=== PATIENT | male | born 1965 | race Caucasian/White ===

== ENCOUNTER 2020-03-03 10:51 | Inpatient (IN) | payer OTHER ==
--- NOTE | 2020-03-03 11:38 | PDOC ---
History of Present Illness - General Chief Complaint: Pain, Acute Stated Complaint: Hematuria Time Seen by Provider: 03/03/20 11:37 History Source: Patient Exam Limitations: No Limitations - History of Present Illness Initial Comments: 03/03/20 12:39 HPI: This is a 54 y/o male patient with a PMH of spinal cord injury and resulting urinary incontinence and nephrolithiasis presenting to the ED due to intermittent sharp right lower back pain and gross hematuria for the past 5-6 months. The back pain is 10/10, sharp, non-radiating, and has increased in intensity in the past day. Previously he has had this pain, however never this bad. He can't recall if it is similar to his last kidney stone. The pain is not always accompanied by the hematuria, and the hematuria isn't always accompanied by the pain. Advil did not significantly improve the pain. The pain is worse with movement. The hematuria began 6 months ago, and has been intermittent. He did not see anyone for it because he was concerned about COVID. He does not take any blood thinners. The hematuria is accompanied by dysuria, urinary hesitancy, and incomplete emptying. Patient denies fever/chills, N/V, chest pain, SOB, diarrhea. Admits to weight loss and constipation. ROS: GENERAL/CONSTITUTIONAL: No fever/chills. No weakness. Yes weight-loss. HEAD, EYES, EARS, NOSE AND THROAT: No change in vision. No ear pain or discharge. No sore throat. CARDIOVASCULAR: No chest pain or shortness of breath. RESPIRATORY: No cough, wheezing, or hemoptysis. GASTROINTESTINAL: No nausea, vomiting, diarrhea. Yes constipation. GENITOURINARY: Yes dysuria and frequency. Yes gross hematuria with clots. Yes chronic incontinence. MUSCULOSKELETAL: No joint or muscle swelling or pain. Yes r. lower back pain. SKIN: No rash NEUROLOGIC: No headache, or change in strength/sensation. HEMATOLOGIC/LYMPHATIC: No anemia, easy bleeding, or history of blood clots. ALLERGIC/IMMUNOLOGIC: No hives or skin allergy. PMH: Spinal cord injury PSx: Left elbow Social Hx: Denied tobacco and etoh. Marijuana use Meds: Denied Allergies: KNDA PE: GENERAL: Awake, alert, and fully oriented. Patient in visible distress due to pain, but able to converse normally. HEAD: No signs of trauma EYES: PERRLA, EOMI, sclera anicteric, conjunctiva clear NECK: Normal ROM, supple, no lymphadenopathy, JVD, or masses LUNGS: Breath sounds equal, clear to auscultation bilaterally. No wheezes, and no crackles HEART: Regular rate and rhythm, normal S1 and S2, no murmurs, rubs or gallops ABDOMEN: Soft, tender in RLQ and suprapubic, normoactive bowel sounds. No CVA tenderness. No guarding, no rebound. No masses EXTREMITIES: Normal range of motion, no edema. NEUROLOGICAL: Cranial nerves II through XII grossly intact. Normal speech, normal gait SKIN: Warm, Dry, normal turgor, no rashes or lesions noted. MDM: 03/03/20 12:51 This is a 54 y/o male patient with a PMH of spinal cord injury and resulting urinary incontinence and nephrolithiasis presenting to the ED due to intermittent sharp right lower back pain and gross hematuria for the past 5-6 months. sean vs stone vs bladder mass vs renal mass vs UTI vs pyelo. Likely multiple etiologies. Doubt appendicitis. - CBC - CMP - Coags - UA - Culture - EKG - POCUS bladder and kidneys - CT abdomen and Pelvis 03/03/20 13:41 - SEAN: Creat 5.1, BUN 68.2 - Hb 7.5 likely chronic. - K 5.2, bicarb low no EKG changes - Leukocytosis 11.4, no bands - UA with 3+ protein and blood. No UTI. 03/03/20 15:09 CT ABD/PELVIS: IMPRESSION: 1. Severe right-sided hydronephrosis and hydroureter with marked thinning of the right renal cortex consistent with a long-standing obstruction. There is an 11 mm calculus within the proximal right ureter which does not appear to be obstructing. There is also hyperdense fluid within the right ureter consistent with blood. 2. Less severe left-sided hydronephrosis and hydroureter with less extensive thinning of the left renal cortex consistent with a less long-standing obstruction. No left-sided calculi or blood identified. 3. Moderate distention of the urinary bladder which does contain hyperdense material consistent with blood. 4. Enlarged left retroperitoneal lymph nodes. 5. No additional evidence of acute pathology within the abdomen or pelvis. Please see above discussion. - POCUS with 550 ml retained fluid in bladder. Will insert paniagua. 03/03/20 15:10 - Pt will need to be admitted for SEAN, bilateral nephrostomy tubes 03/03/20 15:11 - Microblogged symphony - Spoke with Dr. Amaral who wanted prophylactic Ceftriaxone 03/03/20 15:40 - Pt admitted Past History - Medical History Allergies/Adverse Reactions: Allergies Allergy/AdvReac Type Severity Reaction Status Date / Time No Known Allergies Allergy Verified 03/03/20 10:54 Home Medications: Ambulatory Orders Advil - 200 mg 03/04/20 - Psycho-Social/Smoking History Smoking History: Never smoked Have you smoked in the past 12 months: No Information on smoking cessation initiated: Yes - Substance Abuse Hx (Audit-C & DAST Scrn) How often the patient has a drink containing alcohol: Never Score: In Men: 4 or > Positive; In Women: 3 or > Positive: 0 Screen Result (Pos requires Nsg. Audit-10AR): Negative In the last yr the pt used illegal drug/Rx for NonMed reason: Yes Score: Yes response is considered Positive: 1 Screen Result (Positive result requires Nsg. DAST-10): Positive *Physical Exam - Vital Signs Last Vital Signs Temp Pulse Resp BP Pulse Ox 100 H 168/109 H 99 03/03/20 10:52 03/03/20 10:52 03/03/20 10:52 Heart Score/ECG Review - ECG Intrepretation Comment:: 03/03/20 13:[address] elevations or T-wave inversions. Vent rate 88bpm, ED Treatment Course - LABORATORY CBC & Chemistry Diagram: 03/04/20 06:50 03/04/20 06:50 Discharge - Discharge Information Problems reviewed: Yes Clinical Impression/Diagnosis: SEAN (acute kidney injury), Hyperkalemia, Urinary obstruction, Nephrolithiasis Condition: Guarded - Admission Yes - Follow up/Referral - Patient Discharge Instructions - Post Discharge Activity
[2020-03-03] MEDS ORDERED: SODIUM CHLORIDE 0.9% 500 ML INFUS.BAG IV ONE (11:57)
[2020-03-03] MEDS ORDERED: morphine CARPU-JECT 2 MG/1 ML DISP.SYRIN IVPUSH ONE ×2 (12:10→12:16)
[2020-03-03] MEDS ORDERED: ACETAMINOPHEN 1000 MG/100 ML VIAL (NON FORMULARY) IVPB ONE ×2 (12:10→21:44)
[2020-03-03] MEDS ORDERED: ACETAMINOPHEN INJECTION 100 ML IVPB ONE (12:29)
[2020-03-03] MEDS ORDERED: morphine SULFATE 4 MG/ML VIAL ONE ×2 (12:29→15:05)
[2020-03-03 13:10] LABS: BASO % 0.1 % (0-2.0); HEMOGLOBIN 7.5 GM/dL (11.7-16.9); LYMPH % 6.1 % (8-40); MCH 28.9 pg (25.7-33.7); MCHC 32.5 g/dl (32.0-35.9); MEAN PLT VOLUME 8.3 fl (7.5-11.1); MONO % 2.7 % (3.8-10.2); NEUT % 91.1 % (42.8-82.8); PLATELET COUNT 247 K/MM3 (134-434); RBC 2.58 M/mm3 (4.00-5.60); RDW 13.7 % (11.9-15.9); WHITE BLOOD COUNT 11.4 K/mm3 (4.0-10.0)
--- NOTE | 2020-03-03 13:12 | PDOC ---
Documentation entered by Lin Matias SCRIBE, acting as scribe for Dee Payan MD. Dee Payan MD: This documentation has been prepared by the Florencio rodriguez Ana, SCRIBE, under my direction and personally reviewed by me in its entirety. I confirm that the documentation accurately reflects all work, treatment, procedures, and medical decision making performed by me. Attending Attestation - Resident Resident Name: Blaire Dwyer - ED Attending Attestation I have performed the following: I have examined & evaluated the patient, The case was reviewed & discussed with the resident, I agree w/resident's findings & plan, Exceptions are as noted - HPI HPI: 03/03/20 11:38 Patient is a 54 year old male with a significant past medical history of a spinal cord injury, nephrolithiasis, and urinary incontinence, who presents with a 5 month history of dysuria, intermittent hematuria, intermitent abdominal pain, and lower back pain. Also complains of intermittent urinary hesitancy. Today, began to have the acute onset of sharp, severe R lower back pain. Patient described the pain as being sharp and non-radiating with a pain level of 10/10 and increased intensity earlier today. Patient stated the pain is worse with movement and that he attempted to self-medicate with Advil but experienced no relief. Patient endorses: constipation and weight loss Patent denies: fever, chills, nausea, SOB, vomiting, chest pain, diarrhea Allergies: NKDA - Physicial Exam PE: 03/03/20 13:09 Agree with resident exam. Patient is alert and oriented and in no acute distress. Abdomen is tender in the RLQ without guarding or rebound. No CVA tenderness. - Medical Decision Making 03/03/20 13:10 Pt presents to the ED complaining of 5 months of dysuria, intermitent hematuria and flank pain. Differential includes renal stone, UTI, urinary obstruction, less likely appendicitis or other intrabdominal complaints. Will check labs and CT, give pain control and reassess. Discharge - Discharge Information Problems reviewed: Yes Clinical Impression/Diagnosis: SEAN (acute kidney injury), Hyperkalemia, Urinary obstruction, Nephrolithiasis Condition: Guarded - Follow up/Referral - Patient Discharge Instructions - Post Discharge Activity
[2020-03-03 13:17] LABS: INR 1.03 (0.83-1.09); PROTHROMBIN TIME (PATIENT) 12.2 SEC (9.7-13.0)
[2020-03-03 13:19] LABS: EPI CELLS 1 /uL (0-25.1); HYALINE CASTS 0 /uL (0-3.1); PH,URINE 6.5 (5.0-8.0); URINE APPEARANCE CLOUDY; URINE BACTERIA 16 /uL (0-1359); URINE BILIRUBIN NEGATIVE (NEGATIVE); URINE COLOR RED; URINE GLUCOSE (UA) NEGATIVE (NEGATIVE); URINE KETONE NEGATIVE (NEGATIVE); URINE LEUK ESTERASE TRACE (NEGATIVE); URINE NITRITE NEGATIVE (NEGATIVE); URINE PROTEIN 3+ (NEGATIVE); URINE RBC 11 /uL (0-23.9); URINE UROBILINOGEN 0.2 mg/dL (0.2-1.0); URINE WBC 2 /uL (0-25.8)
[2020-03-03 13:20] LABS: ACTIVATED PTT 27.7 SECONDS (25.2-36.5)
[2020-03-03 13:35] LABS: ANISOCYTOSIS 0; MACROCYTOSIS 0; PLATELET ESTIMATE NORMAL
[2020-03-03 13:36] LABS: BILIRUBIN,TOTAL 0.4 mg/dL (0.2-1); BLOOD UREA NITROGEN 68.2 mg/dL (7-18); CALCIUM 8.9 mg/dL (8.5-10.1); CREATININE 5.1 mg/dL (0.55-1.3); POTASSIUM 5.2 mmol/L (3.5-5.1); TOT PROT 6.9 g/dl (6.4-8.2)
[2020-03-03] MEDS ORDERED: morphine CARPU-JECT 4 MG/1 ML DISP.SYRIN IVPUSH ONE (14:51)
--- NOTE | 2020-03-03 15:35 | PN ---
Teaching Attending Note Name of Resident: Mauro Castelan MD ATTENDING PHYSICIAN STATEMENT I saw and evaluated the patient. I reviewed the resident's note and discussed the case with the resident. I agree with the resident's findings and plan as documented. SUBJECTIVE: 54 year old male with a significant past medical history of a spinal cord injury, nephrolithiasis, urinary incontinence and retention, who presents with complaints of painful urination complicated by occasional hematuria. He admits to low back and abdominal pains. He denied fever nor chills. At the ED patient was found to be tachycardic, hypertensive, with abnormal CT scan of the abdomen showing bilateral hydronephrosis and lab work consistent with renal failure. OBJECTIVE: Gen CT scan of the abdomen shows Severe right-sided hydronephrosis and hydroureter with marked thinning of the right renal cortex consistent with a long-standing obstruction. There is an 11 mm calculus within the proximal right ureter which does not appear to be obstructing. There is also hyperdense fluid within the right ureter consistent with blood. Less severe left-sided hydronephrosis and hydroureter with less extensive thinning of the left renal cortex consistent with a less long-standing obstruction. No left-sided calculi or blood identified. Moderate distention of the urinary bladder which does contain hyperdense material consistent with blood. Enlarged left retroperitoneal lymph nodes. ASSESSMENT AND PLAN:
[2020-03-03] MEDS ORDERED: CEFTRIAXONE 1 GM/50 ML BAG ONE (15:38)
--- NOTE | 2020-03-03 18:01 | CONSULT ---
Consult Consult Specialty:: Nephrology Reason for Consultation:: SEAN - History of Present Illness Chief Complaint: hematuria and abd pain History of Present Illness: Pt is a 54 year old male with pmhx of spinal cord injury, nephrolithiasis, and urinary incontinence who presents to the ER with dysuria and hematuria for the last 5 months. He also complains of back pain. He says that the pain is worse on the right flank. He denies fevers or chills. He was taking Advil for the pain. He was found to have severe obstruction and found to be in acute renal failure. He denies history of CKD. He does have history of kidney stones. He was afraid to come to the hospital for the last 5 months as he was afraid of covid. - History Source History Provided By: Patient, Medical Record - Past Medical History Renal/: Yes: Renal Calculi Musculoskeletal: Yes: Chronic low back pain - Smoking History Smoking history: Never smoked Have you smoked in the past 12 months: No Home Medications - Allergies Allergies/Adverse Reactions: Allergies Allergy/AdvReac Type Severity Reaction Status Date / Time No Known Allergies Allergy Verified 03/03/20 10:54 Family Medical History Family History: Denies Review of Systems - Review of Systems Constitutional: reports: Loss of Appetite, Weakness. denies: Chills, Fever Eyes: reports: No Symptoms HENT: reports: No Symptoms Neck: reports: No Symptoms Cardiovascular: reports: No Symptoms Respiratory: reports: No Symptoms Gastrointestinal: reports: No Symptoms Genitourinary: reports: Dysuria, Hematuria Musculoskeletal: reports: No Symptoms Integumentary: reports: No Symptoms Neurological: reports: No Symptoms Endocrine: reports: No Symptoms Hematology/Lymphatic: reports: No Symptoms Psychiatric: reports: No Symptoms Physical Exam Vital Signs: Vital Signs Temperature Pulse Rate 77 03/03/20 16:24 Respiratory Rate 17 03/03/20 16:24 Blood Pressure 153/93 03/03/20 16:24 O2 Sat by Pulse Oximetry (%) 97 03/03/20 16:24 Constitutional: Yes: Calm Eyes: Yes: Conjunctiva Clear Neck: Yes: Supple Cardiovascular: Yes: S1, S2 Respiratory: Yes: CTA Bilaterally Gastrointestinal: Yes: Soft, Abdomen, Obese Renal/: Yes: Johnson Present, Hematuria Musculoskeletal: Yes: WNL Edema: Yes Edema: LLE: Trace, RLE: Trace Integumentary: Yes: WNL Neurological: Yes: Oriented Psychiatric: Yes: Oriented Labs: CBC, BMP 03/03/20 12:00 03/03/20 12:10 Laboratory Tests 03/03/20 03/03/20 03/03/20 12:00 12:00 12:10 WBC 11.4 H Hgb 7.5 L Plt Count 247 Sodium 140 Potassium 5.2 H Chloride 112 H Carbon Dioxide 17 L Anion Gap 12 BUN 68.2 H Creatinine 5.1 H Urine Protein 3+ H Urine Blood 3+ H Imaging - Results Cat Scan: Report Reviewed Problem List - Problems (1) SEAN (acute kidney injury) Code(s): N17.9 - ACUTE KIDNEY FAILURE, UNSPECIFIED (2) Hyperkalemia Code(s): E87.5 - HYPERKALEMIA (3) Urinary obstruction Code(s): N13.9 - OBSTRUCTIVE AND REFLUX UROPATHY, UNSPECIFIED (4) Nephrolithiasis Code(s): N20.0 - CALCULUS OF KIDNEY Assessment/Plan Impression 1. SEAN 2. obstructive uropathy with severe right side hydro 3. spinal chord injury 4. nephrolithiasis 5. hematuria - gross 6. dysuria 7. nsaid use 8. anemia 9. hyperkalemia 10. 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
[2020-03-03 18:14] LABS: EOS % 0.1 % (0-4.5); HEMATOCRIT 20.2 % (35.4-49); LYMPH % 10.6 % (8-40); MCH 29.9 pg (25.7-33.7); MCHC 33.3 g/dl (32.0-35.9); MEAN CELL VOLUME 89.7 fl (80-96); MONO % 6.1 % (3.8-10.2); NEUT % 82.2 % (42.8-82.8); PLATELET COUNT 189 K/MM3 (134-434); RBC 2.26 M/mm3 (4.00-5.60); RDW 13.7 % (11.9-15.9); WHITE BLOOD COUNT 9.2 K/mm3 (4.0-10.0)
[2020-03-03 18:20] LABS: HEMOGLOBIN 6.7 GM/dL (11.7-16.9)
--- NOTE | 2020-03-03 19:18 | PN ---
Teaching Attending Note Name of Resident: Stanford Sandoval ATTENDING PHYSICIAN STATEMENT I saw and evaluated the patient. I reviewed the resident's note and discussed the case with the resident. I agree with the resident's findings and plan as documented. SUBJECTIVE: Patient is a 54 year old man with a PMH of Spinal cord injury, Nephrolithiasis, Tomas in the left elbow and Urinary incontinence, who presents with a 5 month history of dysuria, intermittent hematuria, intermitent abdominal pain and lower back pain. Also complains of intermittent urinary hesitancy. Today, began to have the acute onset of sharp, severe right lower back pain. Patient described the pain as being sharp and non-radiating with a pain level of 10/10 and increased intensity earlier today. Patient stated the pain is worse with movement and that he attempted to self-medicate with Advil but experienced no relief. There is associated constipation and weight loss. Ambulates well without assistance. Patent denies fever, chills, nausea, SOB, vomiting, chest pain, diarrhea, melena or hematochezia. Denies alcohol, tobacco or illicit drug use. No sick contacts or recent travels. Family history is unremarkable. OBJECTIVE: Alert Vital Signs Period Temp Pulse Resp BP Sys/Masters Pulse Ox Last 24 Hr 98.3 F 77-100 17-18 141-194/68-109 97-99 HEENT: No Jaundice, eye redness or discharge, PERRLA, EOMI. Normocephalic, atraumatic. External ears are normal and hearing is grossly intact. No nasal discharge. Neck: Supple, nontender. No palpable adenopathy or thyromegaly. No JVD Chest: Good effort. Clear to auscultation and percussion. Heart: Regular. No S3, rub or murmur Abdomen: Not distended, soft, suprapubic tenderness; nephrostomy tubes draining serosanguineous fluids and no HSM. No rebound or guarding. Normal bowel sounds. Ext: Peripheral pulses intact. No leg edema. Skin: Warm and dry. No petechiae, rash or ecchymosis. Neuro: Alert. Oriented x3. CN 2-12 grossly intact. Sensation grossly intact in all four extremities and DTR are symmetric. Psych: Appropriate mood and affect. Good insight. Abnormal Lab Results 03/03/20 03/03/20 03/03/20 12:00 12:00 12:10 WBC 11.4 H RBC 2.58 L Hgb 7.5 L Hct 23.0 L Absolute Neuts (auto) 10.4 H Neutrophils % 91.1 H Neutrophils % (Manual) 92.0 H Lymphocytes % 6.1 L Lymphocytes % (Manual) 7.0 L Monocytes % 2.7 L Monocytes % (Manual) 1 L Potassium 5.2 H Chloride 112 H Carbon Dioxide 17 L BUN 68.2 H Creatinine 5.1 H AST 9 L Urine Protein 3+ H Urine Blood 3+ H 03/03/20 17:30 WBC RBC 2.26 L Hgb 6.7 L* Hct 20.2 L Absolute Neuts (auto) Neutrophils % Neutrophils % (Manual) Lymphocytes % Lymphocytes % (Manual) Monocytes % Monocytes % (Manual) Potassium Chloride Carbon Dioxide BUN Creatinine AST Urine Protein Urine Blood Current Medications Generic Name Dose Route Start Last Admin Trade Name Freq PRN Reason Stop Dose Admin Docusate Sodium 100 mg 03/03/20 21:30 03/03/20 21:57 Colace - PO 100 mg DAILY NELSON Administration Sodium Chloride 1,000 mls @ 75 mls/hr 03/03/20 21:45 03/03/20 23:38 Normal Saline - IV 75 mls/hr ASDIR NELSON Administration Senna 2 tab 03/03/20 22:00 03/03/20 21:57 Senna - PO 2 tab HS NELSON Administration ASSESSMENT AND PLAN: 1. CKD with superimposed SEAN CT scan of abdomen/pelvis without contrast showed bilateral hydronephrosis (R>L), enlarged retroperitoneal lymphnodes and distended uriary bladder with bloody fluid. Likely had long standing obstruction or some other disorder that caused CKD and now has superimposed SEAN possibly due to effects of NSAID and dehydration. Nephrostomy tubes has been placed by Interventional radiology. Mild hyperkalemia should improve with increased urine flow. Will get CXR, PTH level, phosphate, continue to hydrate gently, monitor urine output and consult Urology. Avoid nephrotoxic agents such as NSAIDS, aminoglycosides, contrast dyes and certain Alternative medicine products. Will strive to get his medical records form his PCP. Viral testing for COVID-19 ordered and patient placed on airborne, droplet and contact isolation. ER staff prescribed Tylenol, IV Rocephin, Morphine and IV NS for the patient. EKG shows NSR at 88/minute and QTc [address]-T wave changes. Initial troponin is negative. Will continue comprehensive care for all of patients comorbid conditions. 2. Anemia - Likely partly due to CKD and blood loss. Will do basic anemia work up including serial stool guaiacs and iron studies. Being transfused PRBC, but will benefit from IV Venofer before discharge. 3. Obesity Counseled on the risks associated with obesity. Will provide patient all the necessary assistance, counseling and positive reinforcement to facilitate weight loss. Consult senior manager quality assurance. 4. Hypertension Will restart suitable outpatient antihypertensive drugs when clinically appropriate. Subsequently, will revise regimen to ensure [id number] excellent BP control. Patient counseled on the injurious effects of uncontrolled hypertension. Nonpharmacologic measures to control hypertension like weight loss, salt restriction and exercise stressed. Importance of adherence to treatment regimen and attainment of normotension emphasized. 5. DVT prophylaxis - SCD. 6. Advance directives - Full code
[2020-03-03] MEDS ORDERED: SODIUM CHLORIDE 1,000 ML IV SCH (21:45)
--- NOTE | 2020-03-03 21:52 | HP ---
CHIEF COMPLAINT: R low back pain, hematuria, dysuria PCP: none HISTORY OF PRESENT ILLNESS: 6 months ago, pt started developing intermittent hematuria & dysuria. The pt did not see a physician to address these symptoms due to COVID. Then the Pt started developing intermittent, sharp, non-radiating 10/10 lower R back pain. Pt took a month of Advil liquid gel 6-8 pills 200 mg/day to manage his symptoms. It has increased in intensity in the past 2 days, prompting the patient to come into the ED. Denied fevers, chills, nausea, vomiting. Pt had previous kidney stone >10 years ago, which was managed with lithotripsy. He was never told the content of the stone. ER course was notable for: (1) BP 168/109 (2) BUN/Cr 68.2/5.1 GR: 12 (3)K+ 5.2 (4) WBC 11.4 (91.1% neutrophils) (5) H/H: 7.5/23>6.7/20.2 (6) UA: 3+ protein, 3+ blood, 11 RBCs (7)1 gm ceftriaxone, morphine, NS given in ED (8) CTAP: Severe R hydronephrosis, hydroureter. Marked thinning of R renal cortex consistent with long standing obstruction. 11 mm calculus within proximal R ureter less severe L hydronephrosis & hydroureter with thinning of L renal cortex (9) urology was consulted. 10 divehi pigtail nephrostomy tubes were inserted Recent Travel: denies PAST MEDICAL HISTORY: spinal cord injury resulting in urinary incontinence PAST SURGICAL HISTORY: metal inserted in L elbow 2/2 trauma Social History: Smoking:denies Alcohol: denies Drugs: marijuana living at home with mom & grandma no recent travel Allergies No Known Allergies Allergy (Verified 03/03/20 10:54) HOME MEDICATIONS: REVIEW OF SYSTEMS CONSTITUTIONAL: Absent: fever, chills, diaphoresis, generalized weakness, malaise, loss of appetite, HEENT: Absent: rhinorrhea, nasal congestion, throat pain, throat swelling, difficulty swallowing, mouth swelling, ear pain, eye pain, visual changes CARDIOVASCULAR: Absent: chest pain, syncope, palpitations, irregular heart rate, lightheadedness, peripheral edema RESPIRATORY: Absent: cough, shortness of breath, dyspnea with exertion, orthopnea, wheezing, stridor, hemoptysis GASTROINTESTINAL: constipation Absent: abdominal pain, abdominal distension, nausea, vomiting, diarrhea, melena, hematochezia GENITOURINARY: dysuria, frequency, hematuria, flank pain Absent: urgency, hesitancy, genital pain MUSCULOSKELETAL: Absent: myalgia, arthralgia, joint swelling, back pain, neck pain SKIN: Absent: rash, itching, pallor HEMATOLOGIC/IMMUNOLOGIC: Absent: easy bleeding, easy bruising, lymphadenopathy, frequent infections ENDOCRINE: Absent: unexplained weight gain, unexplained weight loss, heat intolerance, cold intolerance NEUROLOGIC: Absent: headache, focal weakness or paresthesias, dizziness, unsteady gait, seizure, mental status changes, bladder or bowel incontinence PSYCHIATRIC: Absent: anxiety, depression, suicidal or homicidal ideation, hallucinations. PHYSICAL EXAMINATION Vital Signs - 24 hr 03/03/20 03/03/20 03/03/20 10:52 16:10 16:16 Temperature Pulse Rate 100 H 89 Pulse Rate [ 81 Left Lower Arm] Pulse Rate [ Right] Respiratory 17 Rate Respiratory 17 Rate [Left Lower Arm] Blood Pressure 168/109 H 194/109 H Blood Pressure 194/109 H [Left Lower Arm ] Blood Pressure [Right Arm] O2 Sat by Pulse 99 98 Oximetry (%) O2 Sat by Pulse 98 Oximetry (%) [ Left Lower Arm] 03/03/20 03/03/20 03/03/20 16:24 17:44 17:59 Temperature 98.3 F Pulse Rate 77 Pulse Rate [ Left Lower Arm] Pulse Rate [ 78 Right] Respiratory 17 18 Rate Respiratory Rate [Left Lower Arm] Blood Pressure 153/93 Blood Pressure [Left Lower Arm ] Blood Pressure 141/68 [Right Arm] O2 Sat by Pulse 97 98 99 Oximetry (%) O2 Sat by Pulse Oximetry (%) [ Left Lower Arm] GENERAL: Awake, alert, and fully oriented, in no acute distress. HEAD: Normal with no signs of trauma. EYES: Pupils equal, round and reactive to light, extraocular movements intact, sclera anicteric, conjunctiva clear. No lid lag. EARS, NOSE, THROAT: Ears normal, nares patent, oropharynx clear without exudates. Moist mucous membranes. NECK: Normal range of motion, supple without lymphadenopathy, JVD, or masses. LUNGS: Breath sounds equal, clear to auscultation bilaterally. No wheezes, and no crackles. No accessory muscle use. HEART: Regular rate and rhythm, normal S1 and S2 without murmur, rub or gallop. ABDOMEN: Soft, obese abdomen normoactive bowel sounds, no guarding, no rebound, no masses. mild suprapubic tenderness MUSCULOSKELETAL: Normal range of motion at all joints. No bony deformities or tenderness. Positive CVA tenderness, R side UPPER EXTREMITIES: 2+ pulses, warm, well-perfused. No cyanosis. No clubbing. No peripheral edema. 5/5 strength. sensation intact b/l. L elbow scar from trauma/surgical repair LOWER EXTREMITIES: 2+ pulses, warm, well-perfused. No calf tenderness. No peripheral edema. 5/5 strength. sensation intact b/l. NEUROLOGICAL: Cranial nerves II-XII intact. Normal speech. Normal gait. PSYCHIATRIC: Cooperative. Good eye contact. Appropriate mood and affect. SKIN: Warm, dry, normal turgor, no rashes or lesions noted, normal capillary refill. Laboratory Results - last 24 hr 03/03/20 03/03/20 03/03/20 12:00 12:00 12:00 WBC 11.4 H RBC 2.58 L Hgb 7.5 L Hct 23.0 L MCV 89.0 MCH 28.9 MCHC 32.5 RDW 13.7 Plt Count 247 MPV 8.3 Absolute Neuts (auto) 10.4 H Neutrophils % 91.1 H Neutrophils % (Manual) 92.0 H Band Neutrophils % 0.0 Lymphocytes % 6.1 L Lymphocytes % (Manual) 7.0 L Monocytes % 2.7 L Monocytes % (Manual) 1 L Eosinophils % 0.0 Eosinophils % (Manual) 0.0 Basophils % 0.1 Basophils % (Manual) 0.0 Myelocytes % (Man) 0 Promyelocytes % (Man) 0 Blast Cells % (Manual) 0 Nucleated RBC % 0 Metamyelocytes 0 Hypochromia 0 Platelet Estimate Normal Polychromasia 0 Poikilocytosis 0 Anisocytosis 0 Microcytosis 0 Macrocytosis 0 PT with INR 12.20 INR 1.03 PTT (Actin FS) 27.7 Sodium Potassium Chloride Carbon Dioxide Anion Gap BUN Creatinine Est GFR (CKD-EPI)AfAm Est GFR (CKD-EPI)NonAf Random Glucose Calcium Total Bilirubin AST ALT Alkaline Phosphatase Total Protein Albumin Lipase Urine Color Red Urine Appearance Cloudy Urine pH 6.5 Ur Specific [place] 1.013 Urine Protein 3+ H Urine Glucose (UA) Negative Urine Ketones Negative Urine Blood 3+ H Urine Nitrite Negative Urine Bilirubin Negative Urine Urobilinogen 0.2 Ur Leukocyte Esterase Trace Urine WBC (Auto) 2 Urine RBC (Auto) 11 Urine Casts (Auto) 0 U Epithel Cells (Auto) 1 Urine Bacteria (Auto) 16 Blood Type Antibody Screen Crossmatch 03/03/20 03/03/20 03/03/20 12:10 17:30 18:53 WBC 9.2 RBC 2.26 L Hgb 6.7 L* Hct 20.2 L MCV 89.7 MCH 29.9 MCHC 33.3 RDW 13.7 Plt Count 189 D MPV 9.0 Absolute Neuts (auto) 7.6 Neutrophils % 82.2 Neutrophils % (Manual) Band Neutrophils % Lymphocytes % 10.6 D Lymphocytes % (Manual) Monocytes % 6.1 D Monocytes % (Manual) Eosinophils % 0.1 D Eosinophils % (Manual) Basophils % 1.0 D Basophils % (Manual) Myelocytes % (Man) Promyelocytes % (Man) Blast Cells % (Manual) Nucleated RBC % 0 Metamyelocytes Hypochromia Platelet Estimate Polychromasia Poikilocytosis Anisocytosis Microcytosis Macrocytosis PT with INR INR PTT (Actin FS) Sodium 140 Potassium 5.2 H Chloride 112 H Carbon Dioxide 17 L Anion Gap 12 BUN 68.2 H Creatinine 5.1 H Est GFR (CKD-EPI)AfAm 13.93 Est GFR (CKD-EPI)NonAf 12.02 Random Glucose 106 Calcium 8.9 Total Bilirubin 0.4 AST 9 L ALT 19 Alkaline Phosphatase 73 Total Protein 6.9 Albumin 4.0 Lipase 164 Urine Color Urine Appearance Urine pH Ur Specific [place] Urine Protein Urine Glucose (UA) Urine Ketones Urine Blood Urine Nitrite Urine Bilirubin Urine Urobilinogen Ur Leukocyte Esterase Urine WBC (Auto) Urine RBC (Auto) Urine Casts (Auto) U Epithel Cells (Auto) Urine Bacteria (Auto) Blood Type B POSITIVE Antibody Screen Negative Crossmatch 03/03/20 18:53 WBC RBC Hgb Hct MCV MCH MCHC RDW Plt Count MPV Absolute Neuts (auto) Neutrophils % Neutrophils % (Manual) Band Neutrophils % Lymphocytes % Lymphocytes % (Manual) Monocytes % Monocytes % (Manual) Eosinophils % Eosinophils % (Manual) Basophils % Basophils % (Manual) Myelocytes % (Man) Promyelocytes % (Man) Blast Cells % (Manual) Nucleated RBC % Metamyelocytes Hypochromia Platelet Estimate Polychromasia Poikilocytosis Anisocytosis Microcytosis Macrocytosis PT with INR INR PTT (Actin FS) Sodium Potassium Chloride Carbon Dioxide Anion Gap BUN Creatinine Est GFR (CKD-EPI)AfAm Est GFR (CKD-EPI)NonAf Random Glucose Calcium Total Bilirubin AST ALT Alkaline Phosphatase Total Protein Albumin Lipase Urine Color Urine Appearance Urine pH Ur Specific [place] Urine Protein Urine Glucose (UA) Urine Ketones Urine Blood Urine Nitrite Urine Bilirubin Urine Urobilinogen Ur Leukocyte Esterase Urine WBC (Auto) Urine RBC (Auto) Urine Casts (Auto) U Epithel Cells (Auto) Urine Bacteria (Auto) Blood Type B POSITIVE Antibody Screen Negative Crossmatch See Detail EKG: no ST elevations or T wave inversions ASSESSMENT/PLAN: Pt is 54 YO M, PMH spinal cord injury who presented with hematuria, dysuria, and lower R back pain. #SEAN on CKD likely 2/2 Advil effect, dehydration, and obstruction from calculus -BUN/Cr: 68.2/5.1 -CTAP: Severe R hydronephrosis, hydroureter. Marked thinning of R renal cortex consistent with long standing obstruction. 11 mm calculus within proximal R ureter. less severe L hydronephrosis & hydroureter with thinning of L renal cortex. enlarged enlarged retroperitoneal lymph nodes and distended urinary bladder with bloody fluid. -s/p nephrostomy tubes insertion -avoid nephrotoxic agents such as NSAIDs (Advil, with this patient), or contrast -strain urine -f/u renal ultrasound -f/u renal and urology c/s #Normocytic anemia -f/u reticulocyte -f/u iron studies, ferritin -1 PRBC ordered -will consider IV venofer #Obesity -automotive worker was consulted #DVT PPX SCDs no ACs 2/2 Hgb/Hct 6.7/20.2 #FEN NS @75 ml/hr monitor lytes NPO #DISPO maintain med surg Visit type - Emergency Visit Emergency Visit: Yes ED Registration Date: 03/03/20 Care time: The patient presented to the Emergency Department on the above date and was hospitalized for further evaluation of their emergent condition. - New Patient This patient is new to me today: Yes Date on this admission: 03/03/20 - Critical Care Critical Care patient: No ATTENDING PHYSICIAN STATEMENT I saw and evaluated the patient. I reviewed the resident's note and discussed the case with the resident. I agree with the resident's findings and plan as documented. SUBJECTIVE: OBJECTIVE: ASSESSMENT AND PLAN:
[2020-03-03] MEDS: DOCUSATE SODIUM 100 MG CAPSULE (FP) PO SCH (21:57)
[2020-03-03] MEDS: SENNOSIDES 8.6MG TABLET (FP) PO SCH (21:57)
[2020-03-04 01:16] VITALS: BMI 37.9
[2020-03-04 01:25] LABS: PHOSPHOROUS 5.5 mg/dL (2.5-4.9)
[2020-03-04] MEDS ORDERED: CEFTRIAXONE 1,000 MG in DEXTROSE 5%-WATER - 50 ML IVPB ONE (06:39)
[2020-03-04 07:56] LABS: BASO % 0.4 % (0-2.0); EOS % 0.9 % (0-4.5); HEMATOCRIT 21.3 % (35.4-49); HEMOGLOBIN 7.2 GM/dL (11.7-16.9); MCH 29.7 pg (25.7-33.7); MCHC 33.6 g/dl (32.0-35.9); MEAN CELL VOLUME 88.3 fl (80-96); MEAN PLT VOLUME 8.4 fl (7.5-11.1); MONO % 6.9 % (3.8-10.2); NEUT % 80.8 % (42.8-82.8); PLATELET COUNT 197 K/MM3 (134-434); RBC 2.42 M/mm3 (4.00-5.60); RDW 13.9 % (11.9-15.9); WHITE BLOOD COUNT 8.3 K/mm3 (4.0-10.0)
[2020-03-04 08:21] LABS: ALBUMIN 2.9 g/dl (3.4-5.0); BILIRUBIN,TOTAL 0.4 mg/dL (0.2-1); BLOOD UREA NITROGEN 61.9 mg/dL (7-18); CALCIUM 8.3 mg/dL (8.5-10.1); MAGNESIUM 2.1 mg/dL (1.8-2.4); PHOSPHOROUS 5.8 mg/dL (2.5-4.9); POTASSIUM 4.8 mmol/L (3.5-5.1); TOT PROT 5.5 g/dl (6.4-8.2)
[2020-03-04] MEDS ORDERED: CEFTRIAXONE 1 GM in DEXTROSE 5%-WATER - 50 ML IVPB ONE (10:00)
[2020-03-04] MEDS ORDERED: cefTRIAXone SODIUM 1 GM VIAL ONE (10:48)
[2020-03-04] MEDS ORDERED: DEXTROSE 5%-WATER - 50 ML IVPB ONE (10:49)
[2020-03-04] MEDS: DOCUSATE SODIUM 100 MG CAPSULE (FP) PO SCH (10:55)
--- NOTE | 2020-03-04 11:50 | PN ---
Progress Note (short form) - Note Progress Note: SUBJECTIVE Seen and examined at bedside. Patient in no distress. Draining bloody urine from both nephrostomy tubes and Johnson catheter. Received 1 unit PRBC overnight with increase in hemoglobin from 6.7-7.2. Will transfuse additional unit. OBJECTIVE Last Vital Signs Temp Pulse Resp BP Pulse Ox 97.8 F 85 18 137/84 98 03/04/20 03:12 03/04/20 03:12 03/04/20 03:12 03/04/20 03:12 03/04/20 03:12 PE GEN: NAD HEENT: NC/AT ESVIN RESP: CTAB CARDS: RRR, -MRG ABD: soft, nt/nd +BS EXT: No swelling/Edema Neuro: Non-focal, A&OX3 Labs/Imaging: reviewed ASSESSMENT AND PLAN 54-year-old male with a past medical history of spinal cord injury, nephrolithiasis, urinary incontinence who presents with 5-month history of dysuria, intermittent hematuria, abdominal pain and lower back pain that acutely became significantly worse. Found to have significant bilateral hydronephrosis and obstructive SEAN. #Obstructive SEAN on unknown stage CKD Obstruction is chronic. Will likely be some component of CKD, as of yet undetermined Status post bilateral nephrostomy tubes and Johnson catheter Nephrology on board Urology on board: Pending recs Avoid nephrotoxic agents Fluids #Normocytic anemia, component of acute blood loss anemia Appears to be combination of anemia of chronic kidney disease and acute blood loss anemia Transfuse to goal hemoglobin greater than 8. s/p 1U will transfuse additional 1U today We will discuss Epogen treatment with nephrology. If planned, will require IV iron #DVT prophylaxis: SCDs Visit type - Emergency Visit Emergency Visit: Yes ED Registration Date: 03/03/20 Care time: The patient presented to the Emergency Department on the above date and was hospitalized for further evaluation of their emergent condition. - New Patient This patient is new to me today: Yes Date on this admission: 03/04/20 - Critical Care Critical Care patient: No
--- NOTE | 2020-03-04 13:24 | EKG ---
Test Reason : Blood Pressure : / mmHG Vent. Rate : 088 BPM Atrial Rate : 088 BPM P-R Int : 134 ms QRS Dur : 100 ms QT Int : 366 ms P-R-T Axes : 059 070 043 degrees QTc Int : 442 ms NORMAL SINUS RHYTHM NORMAL ECG NO PREVIOUS ECGS AVAILABLE Confirmed by Emilee Portillo ([id number]) on 03/04/2020 1:23:56 PM Referred By: Confirmed By:Emilee Portillo
[2020-03-04] MEDS ORDERED: ACETAMINOPHEN 325 MG TABLET (FP) PO PRN (13:27)
--- NOTE | 2020-03-04 13:52 | PN ---
Progress Note, Physician Chief Complaint: Flank pain History of Present Illness: Seen and examined at the bedside s/p IR bilateral nephrostomy tubes placement yesterday making urine via nephrostomies and [place] hematuria noted continues to have lower abdominal pain no fever, chills, sob, N/V/D - Current Medication List Current Medications: Active Medications Acetaminophen (Tylenol -) 650 mg PO Q6H PRN PRN Reason: PAIN Last Admin: 03/04/20 13:35 Dose: 650 mg Documented by: Docusate Sodium (Colace -) 100 mg PO DAILY [facility] Last Admin: 03/04/20 10:55 Dose: 100 mg Documented by: Sodium Chloride (Normal Saline -) 1,000 mls @ 75 mls/hr IV ASDIR [facility] Last Admin: 03/03/20 23:38 Dose: 75 mls/hr Documented by: Senna (Senna -) 2 tab PO HS [facility] Last Admin: 03/03/20 21:57 Dose: 2 tab Documented by: Tramadol HCl (Ultram -) 50 mg PO Q6H PRN PRN Reason: PAIN LEVEL 6-10 - Objective Vital Signs: Vital Signs Temperature 97.8 F 03/04/20 03:12 Pulse Rate 92 H 03/04/20 10:00 Respiratory Rate 18 03/04/20 10:00 Blood Pressure 146/92 03/04/20 10:00 O2 Sat by Pulse Oximetry (%) 97 03/04/20 10:00 Constitutional: Yes: No Distress, Calm Neck: Yes: Supple Cardiovascular: Yes: Regular Rate and Rhythm Respiratory: Yes: Regular Gastrointestinal: Yes: Soft, Tenderness Genitourinary: Yes: [place] Present, Other (bilateral nephrostomy tubes with hematuria) Extremities: No: Cyanosis Edema: No Neurological: Yes: Alert, Oriented Labs: CBC, BMP 03/04/20 06:50 03/04/20 06:50 INR, PTT INR 1.03 (0.83-1.09) 03/03/20 12:00 Assessment/Plan Impression 1. SEAN 2. obstructive uropathy with severe right side hydro 3. spinal chord injury 4. nephrolithiasis 5. hematuria - gross 6. dysuria 7. nsaid use 8. anemia 9. hyperkalemia 10. metabolic acidosis Plan Renal function improving s/p nephrostomy tube placement is non-oliguric and hyperkalemia improved change IVF to 1/2 NS at 100cc per hour urology follow up Trend renal function and electrolytes daily pain control w/o nsaids Thank you All De Los Santos DO
[2020-03-04] MEDS ORDERED: amLODIPine BESYLATE 5 MG TABLET (FP) PO ONE (14:01)
[2020-03-04] MEDS: traMADol HCL 50 MG TABLET PO PRN (18:51)
[2020-03-04] MEDS: SODIUM CHLORIDE 0.45% 1,000 ML IV SCH (20:21)
[2020-03-04] MEDS: SENNOSIDES 8.6MG TABLET (FP) PO SCH (21:04)
[2020-03-04 22:02] LABS: HEMATOCRIT 22.3 % (35.4-49); HEMOGLOBIN 7.6 GM/dL (11.7-16.9); MCH 29.2 pg (25.7-33.7); MCHC 33.9 g/dl (32.0-35.9); MEAN CELL VOLUME 86.3 fl (80-96); PLATELET COUNT 186 K/MM3 (134-434); RBC 2.59 M/mm3 (4.00-5.60); RDW 14.4 % (11.9-15.9); WHITE BLOOD COUNT 9.1 K/mm3 (4.0-10.0)
[2020-03-05] MEDS: traMADol HCL 50 MG TABLET PO PRN ×2 (05:29→18:04)
[2020-03-05] MEDS: SODIUM CHLORIDE 0.45% 1,000 ML IV SCH ×2 (06:12→16:46)
[2020-03-05 08:02] LABS: BLOOD UREA NITROGEN 48.9 mg/dL (7-18); CALCIUM 7.7 mg/dL (8.5-10.1); PHOSPHOROUS 4.4 mg/dL (2.5-4.9); POTASSIUM 4.3 mmol/L (3.5-5.1)
[2020-03-05] MEDS: DOCUSATE SODIUM 100 MG CAPSULE (FP) PO SCH (09:17)
--- NOTE | 2020-03-05 13:24 | PN ---
Progress Note, Physician Chief Complaint: Flank pain History of Present Illness: Seen and examined at the bedside awake and alert offers no acute complaints making urine via nephrostomies and [place] no flank pain - Current Medication List Current Medications: Active Medications Acetaminophen (Tylenol -) 650 mg PO Q6H PRN PRN Reason: PAIN Last Admin: 03/04/20 13:35 Dose: 650 mg Documented by: Docusate Sodium (Colace -) 100 mg PO DAILY [facility] Last Admin: 03/05/20 09:17 Dose: 100 mg Documented by: Sodium Chloride (1/2 Normal Saline) 1,000 mls @ 100 mls/hr IV ASDIR [facility] Last Admin: 03/05/20 06:12 Dose: 100 mls/hr Documented by: Senna (Senna -) 2 tab PO HS [facility] Last Admin: 03/04/20 21:04 Dose: 2 tab Documented by: Tramadol HCl (Ultram -) 50 mg PO Q6H PRN PRN Reason: PAIN LEVEL 6-10 Last Admin: 03/05/20 05:29 Dose: 50 mg Documented by: - Objective Vital Signs: Vital Signs Temperature 98.3 F 03/05/20 06:00 Pulse Rate 96 H 03/05/20 10:00 Respiratory Rate 18 03/05/20 10:00 Blood Pressure 156/96 03/05/20 10:00 O2 Sat by Pulse Oximetry (%) 97 03/05/20 10:00 Constitutional: Yes: No Distress Neck: Yes: Supple Cardiovascular: Yes: Regular Rate and Rhythm Respiratory: Yes: Regular Gastrointestinal: Yes: Soft Genitourinary: Yes: [place] Present, Other (nephrostomy tubes present) Edema: No Neurological: Yes: Alert, Oriented Labs: CBC, BMP 03/04/20 21:21 03/05/20 06:50 INR, PTT INR 1.03 (0.83-1.09) 03/03/20 12:00 Assessment/Plan Impression 1. SEAN 2. obstructive uropathy with severe right side hydro 3. spinal chord injury 4. nephrolithiasis 5. hematuria - gross 6. dysuria 7. nsaid use 8. anemia 9. hyperkalemia 10. metabolic acidosis Plan Renal function improving is non-oliguric and hyperkalemia improved Continue 1/2 NS at 100cc per hour urology follow up Trend renal function and electrolytes daily pain control w/o nsaids transfuse as needed for anemia Thank you All De Los Santos DO
--- NOTE | 2020-03-05 14:21 | PN ---
Physical Exam: SUBJECTIVE: Patient seen and examined at bedside. Patient endorses no overnight events. Patient reports feeling mild discomfort from bilateral nephrostomy. OBJECTIVE: Vital Signs Period Temp Pulse Resp BP Sys/Masters Pulse Ox Last 24 Hr 98.3 F-100.2 F 76-96 16-18 148-156/88-98 97-99 GENERAL: The patient is awake, alert, and fully oriented, in no acute distress. LUNGS: Breath sounds equal, clear to auscultation bilaterally, no wheezes, no crackles, no accessory muscle use. HEART: Regular rate and rhythm, S1, S2 without murmur, rub or gallop. ABDOMEN: soft, nt/nd +BS EXTREMITIES: 2+ pulses, warm, well-perfused, no edema. SKIN: Warm, dry, normal turgor, no rashes or lesions noted Laboratory Results - last 24 hr 03/04/20 03/04/20 03/05/20 06:50 21:21 06:50 WBC 9.1 RBC 2.59 L Hgb 7.6 L Hct 22.3 L MCV 86.3 MCH 29.2 MCHC 33.9 RDW 14.4 Plt Count 186 MPV 8.0 Sodium 142 Potassium 4.3 Chloride 114 H Carbon Dioxide 18 L Anion Gap 11 BUN 48.9 H Creatinine 3.0 H Est GFR (CKD-EPI)AfAm 26.45 Est GFR (CKD-EPI)NonAf 22.83 Random Glucose 104 Calcium 7.7 L Phosphorus 4.4 PTH Intact 76 H Active Medications Generic Name Dose Route Start Last Admin Trade Name Freq PRN Reason Stop Dose Admin Acetaminophen 650 mg 03/04/20 13:27 03/04/20 13:35 Tylenol - PO 650 mg Q6H PRN Administration PAIN Docusate Sodium 100 mg 03/03/20 21:30 03/05/20 09:17 Colace - PO 100 mg DAILY [facility] Administration Sodium Chloride 1,000 mls @ 100 mls/hr 03/04/20 14:00 03/05/20 06:12 1/2 Normal Saline IV 100 mls/hr ASDIR [facility] Administration Senna 2 tab 03/03/20 22:00 03/04/20 21:04 Senna - PO 2 tab HS [facility] Administration Tramadol HCl 50 mg 03/04/20 13:48 03/05/20 05:29 Ultram - PO 50 mg Q6H PRN Administration PAIN LEVEL 6-10 ASSESSMENT/PLAN: Mr. Romo is a 54M w a h/o long standing nephrolithiasis, 5 month history of dysuria and hematuria, and a spinal cord injury circa ~1980s. Patient reports to the emergency department for significantly worsening lower back pain. CT scan reveals significanly dilated bilateral hydronephrosis with an 11mm renal calculus in the upper right ureter and obstructive sean. #Obstructive SEAN Patient is s/p bilateral nephrostomy tube and catheter placement - r side nephrostomy bag draining tg red blood - l side nephrostomy bag draining mixture of urine and blood - catheter draining <100 cc of hematuria - Dr. De Los Santos consulted (nephro) #Normocytic anemia - MCV - 86.3 likely a result of chronic kidney disease Hgb - 7.6 - will transfuse additional 1U today #DVT prophylaxis: SCDs Visit type - Emergency Visit Emergency Visit: Yes ED Registration Date: 03/03/20 Care time: The patient presented to the Emergency Department on the above date and was hospitalized for further evaluation of their emergent condition. - New Patient This patient is new to me today: Yes Date on this admission: 03/05/20 - Critical Care Critical Care patient: No - Discharge Referral Referred to [facility] Med P.C.: No ATTENDING PHYSICIAN STATEMENT I saw and evaluated the patient. I reviewed the resident's note and discussed the case with the resident. I agree with the resident's findings and plan as documented. SUBJECTIVE: OBJECTIVE: ASSESSMENT AND PLAN:
--- NOTE | 2020-03-05 14:36 | PN ---
Teaching Attending Note Name of Resident: Jose Covarrubias ATTENDING PHYSICIAN STATEMENT I saw and evaluated the patient. I reviewed the resident's note and discussed the case with the resident. I agree with the resident's findings and plan as documented. SUBJECTIVE: pt seen and examined OBJECTIVE: Last Vital Signs Temp Pulse Resp BP Pulse Ox 98.3 F 96 H 18 156/96 97 03/05/20 06:00 03/05/20 10:00 03/05/20 10:00 03/05/20 10:00 03/05/20 10:00 GEN: NAD, denies pain HEENT: NC/AT, slight pallor, neck supple RESP: CTA bilat, no rales or wheezes CARDS: non tachy, systolic LSB murmur ABD: soft, obese nt/nd +BS, nephrostomy tubes noted, Rt has bloody urine, lt clear, [place] draining hematuria EXT: +2 pulses, no leg edema Neuro: Nonfocal, A&OX3 CBCD WBC 9.1 K/mm3 (4.0-10.0) 03/04/20 21:21 RBC 2.59 M/mm3 (4.00-5.60) L 03/04/20 21:21 Hgb 7.6 GM/dL (11.7-16.9) L 03/04/20 21:21 Hct 22.3 % (35.4-49) L 03/04/20 21:21 MCV 86.3 fl (80-96) 03/04/20 21:21 MCHC 33.9 g/dl (32.0-35.9) 03/04/20 21:21 RDW 14.4 % (11.9-15.9) 03/04/20 21:21 Plt Count 186 K/MM3 (134-434) 03/04/20 21:21 MPV 8.0 fl (7.5-11.1) 03/04/20 21:21 CMP Sodium 142 mmol/L (136-145) 03/05/20 06:50 Potassium 4.3 mmol/L (3.5-5.1) 03/05/20 06:50 Chloride 114 mmol/L (98-107) H 03/05/20 06:50 Carbon Dioxide 18 mmol/L (21-32) L 03/05/20 06:50 Anion Gap 11 MMOL/L (8-16) 03/05/20 06:50 BUN 48.9 mg/dL (7-18) H 03/05/20 06:50 Creatinine 3.0 mg/dL (0.55-1.3) H 03/05/20 06:50 Calcium 7.7 mg/dL (8.5-10.1) L 03/05/20 06:50 Total Bilirubin 0.4 mg/dL (0.2-1) 03/04/20 06:50 AST 7 U/L (15-37) L 03/04/20 06:50 ALT 13 U/L (13-61) 03/04/20 06:50 Alkaline Phosphatase 60 U/L (45-117) 03/04/20 06:50 Total Protein 5.5 g/dl (6.4-8.2) L 03/04/20 06:50 Albumin 2.9 g/dl (3.4-5.0) L 03/04/20 06:50 Active Medications Acetaminophen (Tylenol -) 650 mg PO Q6H PRN PRN Reason: PAIN Last Admin: 03/04/20 13:35 Dose: 650 mg Documented by: Docusate Sodium (Colace -) 100 mg PO DAILY [facility] Last Admin: 03/05/20 09:17 Dose: 100 mg Documented by: Sodium Chloride (1/2 Normal Saline) 1,000 mls @ 100 mls/hr IV ASDIR [facility] Last Admin: 03/05/20 06:12 Dose: 100 mls/hr Documented by: Senna (Senna -) 2 tab PO HS [facility] Last Admin: 03/04/20 21:04 Dose: 2 tab Documented by: Tramadol HCl (Ultram -) 50 mg PO Q6H PRN PRN Reason: PAIN LEVEL 6-10 Last Admin: 03/05/20 05:29 Dose: 50 mg Documented by: ASSESSMENT AND PLAN: 54-year-old male with a past medical history of spinal cord injury, nephrolithiasis, urinary incontinence who presents with 5-month history of dysuria, intermittent hematuria, abdominal pain and lower back pain that acutely became significantly worse. Found to have significant bilateral hydronephrosis and obstructive SEAN. # Post-renal SEAN vs SEAN on CKD Status post bilateral nephrostomy tubes and [place] catheter Avoid nephrotoxic agents IV fluids, trend electrolytes -wbc normalized -transfuse 1unit due to active bleeding -improving creatinine -still metabolic acidosis -may consider bicarbonate -obtain VBG Nephrology consult Urology consult #DVT prophylaxis: SCDs
[2020-03-05 17:20] LABS: BASO % 0.5 % (0-2.0); EOS % 1.2 % (0-4.5); HEMATOCRIT 23.3 % (35.4-49); HEMOGLOBIN 7.8 GM/dL (11.7-16.9); LYMPH % 13.4 % (8-40); MCH 29.4 pg (25.7-33.7); MCHC 33.6 g/dl (32.0-35.9); MEAN CELL VOLUME 87.5 fl (80-96); MEAN PLT VOLUME 8.1 fl (7.5-11.1); MONO % 7.5 % (3.8-10.2); NEUT % 77.4 % (42.8-82.8); PLATELET COUNT 204 K/MM3 (134-434); RBC 2.66 M/mm3 (4.00-5.60); RDW 14.8 % (11.9-15.9); WHITE BLOOD COUNT 10.1 K/mm3 (4.0-10.0)
--- NOTE | 2020-03-05 17:42 | CON.GU ---
Consult Consult Specialty:: Referred by:: Anahi Reason for Consultation:: hydroneph - History of Present Illness Chief Complaint: R flank pain History of Present Illness: 54 yo m w hx of intermittent hematuria & dysuria. The pt did not see a physician to address these symptoms due to COVID. Then the Pt started developing inter mittent, sharp, non-radiating 10/10 lower R back pain. Pt took a month of Advil liquid gel 6-8 pills 200 mg/day to manage his symptoms. It has increased in intensity in the past 2 days, prompting the patient to come into the ED. Denied fevers, chills, nausea, vomiting. Pt had previous kidney stone >10 years ago, which was managed with lithotripsy. He was never told the content of the stone. ER course was notable for: (1) BP 168/109 (2) BUN/Cr 68.2/5.1 GR: 12 (3)K+ 5.2 (4) WBC 11.4 (91.1% neutrophils) (5) H/H: 7.5/23>6.7/20.2 (6) UA: 3+ protein, 3+ blood, 11 RBCs (7)1 gm ceftriaxone, morphine, NS given in ED (8) CTAP: Severe R hydronephrosis, hydroureter. Marked thinning of R renal cortex consistent with long standing obstruction. 11 mm calculus within proximal R ureter less severe L hydronephrosis & hydroureter with thinning of L renal cortex (9) urology was consulted. 10 sami pigtail nephrostomy tubes were inserted - History Source History Provided By: Patient, Medical Record Limitations to Obtaining History: No Limitations - Past Medical History Renal/: Yes: Hematuria, Renal Calculi Musculoskeletal: Yes: Chronic low back pain - Smoking History Smoking history: Never smoked Have you smoked in the past 12 months: No Home Medications - Allergies Allergies/Adverse Reactions: Allergies Allergy/AdvReac Type Severity Reaction Status Date / Time No Known Allergies Allergy Verified 03/03/20 10:54 - Home Medications Home Medications: Ambulatory Orders Advil - 200 mg 03/04/20 Review of Systems - Review of Systems Genitourinary: reports: Flank Pain Physical Exam- Vital Signs: Vital Signs Temperature 99.7 F H 03/05/20 14:00 Pulse Rate 86 03/05/20 14:00 Respiratory Rate 18 03/05/20 14:00 Blood Pressure 153/97 03/05/20 14:00 O2 Sat by Pulse Oximetry (%) 97 03/05/20 10:00 Gastrointestinal: Yes: Soft Renal/: Yes: CVA Tenderness - Right, Johnson Present, Hematuria Labs: CBC, BMP 03/05/20 16:58 03/05/20 06:50 Imaging - Results Cat Scan: Report Reviewed Problem List - Problems (1) Ureteral calculus, right Code(s): N20.1 - CALCULUS OF URETER (2) SEAN (acute kidney injury) Code(s): N17.9 - ACUTE KIDNEY FAILURE, UNSPECIFIED (3) Gross hematuria Assessment/Plan: cystoscopy, evacuation of clots 03/06 Code(s): R31.0 - GROSS HEMATURIA (4) Hydronephrosis concurrent with and due to calculi of kidney and ureter Assessment/Plan: cystoscopy and bilat JJ stent insertion Code(s): N13.2 - HYDRONEPHROSIS WITH RENAL AND URETERAL CALCULOUS OBSTRUCTION
[2020-03-05] MEDS: SENNOSIDES 8.6MG TABLET (FP) PO SCH (21:11)
[2020-03-06] MEDS ORDERED: ACETAMINOPHEN 1000 MG/100 ML VIAL (NON FORMULARY) IVPB ONE (02:28)
[2020-03-06 04:47] LABS: BASO % 0.7 % (0-2.0); HEMATOCRIT 25.4 % (35.4-49); HEMOGLOBIN 8.7 GM/dL (11.7-16.9); LYMPH % 11.4 % (8-40); MCH 30.2 pg (25.7-33.7); MCHC 34.1 g/dl (32.0-35.9); MEAN CELL VOLUME 88.5 fl (80-96); MEAN PLT VOLUME 7.9 fl (7.5-11.1); MONO % 5.6 % (3.8-10.2); NEUT % 81.3 % (42.8-82.8); PLATELET COUNT 204 K/MM3 (134-434); RBC 2.87 M/mm3 (4.00-5.60); RDW 14.4 % (11.9-15.9); WHITE BLOOD COUNT 10.1 K/mm3 (4.0-10.0)
[2020-03-06 08:35] LABS: HEMOGLOBIN 8.4 GM/dL (11.7-16.9); MCH 29.9 pg (25.7-33.7); MCHC 33.8 g/dl (32.0-35.9); MEAN CELL VOLUME 88.5 fl (80-96); MEAN PLT VOLUME 8.1 fl (7.5-11.1); PLATELET COUNT 197 K/MM3 (134-434); RBC 2.82 M/mm3 (4.00-5.60); RDW 13.7 % (11.9-15.9); WHITE BLOOD COUNT 9.3 K/mm3 (4.0-10.0)
[2020-03-06 08:55] LABS: BLOOD UREA NITROGEN 35.3 mg/dL (7-18); CALCIUM 8.2 mg/dL (8.5-10.1); CREATININE 2.3 mg/dL (0.55-1.3); MAGNESIUM 1.6 mg/dL (1.8-2.4); PHOSPHOROUS 4.1 mg/dL (2.5-4.9); POTASSIUM 4.2 mmol/L (3.5-5.1)
[2020-03-06] MEDS: DOCUSATE SODIUM 100 MG CAPSULE (FP) PO SCH (09:05)
[2020-03-06] MEDS: SODIUM CHLORIDE 0.45% 1,000 ML IV SCH ×3 (09:05→18:02)
[2020-03-06] MEDS ORDERED: ONDANSETRON 4 MG/2 ML VIAL IVPUSH PRN ×2 (13:06→16:17)
--- NOTE | 2020-03-06 13:06 | PN ---
Teaching Attending Note Name of Resident: Jose Covarrubias ATTENDING PHYSICIAN STATEMENT I saw and evaluated the patient. I reviewed the resident's note and discussed the case with the resident. I agree with the resident's findings and plan as documented. SUBJECTIVE:pt seen and examined OBJECTIVE: Last Vital Signs Temp Pulse Resp BP Pulse Ox 98.3 F 88 18 140/80 98 03/06/20 10:00 03/06/20 10:00 03/06/20 10:00 03/06/20 10:00 03/06/20 10:00 GEN: NAD, denies pain HEENT: NC/AT, slight pallor, neck supple RESP: CTA bilat, no rales or wheezes CARDS: non tachy, systolic LSB murmur ABD: soft, obese nt/nd +BS, nephrostomy tubes noted, Rt has bloody urine, lt clear, paniagua draining hematuria EXT: +2 pulses, no leg edema Neuro: Nonfocal, A&OX3 CBCD WBC 9.3 K/mm3 (4.0-10.0) 03/06/20 07:40 RBC 2.82 M/mm3 (4.00-5.60) L 03/06/20 07:40 Hgb 8.4 GM/dL (11.7-16.9) L 03/06/20 07:40 Hct 25.0 % (35.4-49) L 03/06/20 07:40 MCV 88.5 fl (80-96) 03/06/20 07:40 MCHC 33.8 g/dl (32.0-35.9) 03/06/20 07:40 RDW 13.7 % (11.9-15.9) 03/06/20 07:40 Plt Count 197 K/MM3 (134-434) 03/06/20 07:40 MPV 8.1 fl (7.5-11.1) 03/06/20 07:40 CMP Sodium 142 mmol/L (136-145) 03/06/20 07:40 Potassium 4.2 mmol/L (3.5-5.1) 03/06/20 07:40 Chloride 112 mmol/L (98-107) H 03/06/20 07:40 Carbon Dioxide 20 mmol/L (21-32) L 03/06/20 07:40 Anion Gap 9 MMOL/L (8-16) 03/06/20 07:40 BUN 35.3 mg/dL (7-18) H 03/06/20 07:40 Creatinine 2.3 mg/dL (0.55-1.3) H 03/06/20 07:40 Calcium 8.2 mg/dL (8.5-10.1) L 03/06/20 07:40 Total Bilirubin 0.4 mg/dL (0.2-1) 03/04/20 06:50 AST 7 U/L (15-37) L 03/04/20 06:50 ALT 13 U/L (13-61) 03/04/20 06:50 Alkaline Phosphatase 60 U/L (45-117) 03/04/20 06:50 Total Protein 5.5 g/dl (6.4-8.2) L 03/04/20 06:50 Albumin 2.9 g/dl (3.4-5.0) L 03/04/20 06:50 Active Medications Acetaminophen (Tylenol -) 650 mg PO Q6H PRN PRN Reason: PAIN Last Admin: 03/04/20 13:35 Dose: 650 mg Documented by: Docusate Sodium (Colace -) 100 mg PO DAILY [facility] Last Admin: 03/06/20 09:05 Dose: Not Given Documented by: Sodium Chloride (1/2 Normal Saline) 1,000 mls @ 100 mls/hr IV ASDIR [facility] Last Admin: 03/06/20 09:05 Dose: 100 mls/hr Documented by: Senna (Senna -) 2 tab PO HS [facility] Last Admin: 03/05/20 21:11 Dose: 2 tab Documented by: Tramadol HCl (Ultram -) 50 mg PO Q6H PRN PRN Reason: PAIN LEVEL 6-10 Last Admin: 03/05/20 18:04 Dose: 50 mg Documented by: ASSESSMENT AND PLAN: 54-year-old male with a past medical history of spinal cord injury, nephrolithiasis, urinary incontinence who presents with 5-month history of dysuria, intermittent hematuria, abdominal pain and lower back pain that acutely became significantly worse. Found to have significant bilateral hydronephrosis and obstructive SEAN. # Post-renal SEAN vs SEAN on CKD Status post bilateral nephrostomy tubes and [place] catheter Avoid nephrotoxic agents IV fluids, trend electrolytes -wbc normalized -improving creatinine -still metabolic acidosis, improving -for cystoscopy +JJ stent Nephrology consult appreciated Urology consult appreciated #DVT prophylaxis: SCDs
[2020-03-06] MEDS ORDERED: LIDOCAINE HCL/PF 2% SDV 5ML VIAL ONE (13:13)
[2020-03-06] MEDS ORDERED: PROPOFOL 20 ML ONE ×2 (13:14)
[2020-03-06] MEDS ORDERED: MIDAZOLAM HCL 2 MG/2 ML SINGLE DOSE VIAL ONE (13:14)
[2020-03-06] MEDS ORDERED: LACTATED RINGERS SOLUTION 1,000 ML IV SCH ×2 (13:15→16:17)
[2020-03-06] MEDS ORDERED: MAGNESIUM SULF 50% (8.12 MEQ/2 ML-1 GM VIAL) IVPB ONE (13:59)
--- NOTE | 2020-03-06 13:59 | PN ---
Progress Note, Physician History of Present Illness: Pt seen and examined at bedside. He is awake and alert. he denies shortness of breath. - Current Medication List Current Medications: Active Medications Acetaminophen (Tylenol -) 650 mg PO Q6H PRN PRN Reason: PAIN Last Admin: 03/04/20 13:35 Dose: 650 mg Documented by: Docusate Sodium (Colace -) 100 mg PO DAILY [facility] Last Admin: 03/06/20 09:05 Dose: Not Given Documented by: Fentanyl (Sublimaze Injection -) 50 mcg IVPUSH [id number] PRN PRN Reason: PAIN-PACU ORDER X 4 DOSES ONLY Stop: 03/07/20 13:05 Sodium Chloride (1/2 Normal Saline) 1,000 mls @ 100 mls/hr IV ASDIR [facility] Last Admin: 03/06/20 09:05 Dose: 100 mls/hr Documented by: Lactated Ringer's (Lactated Ringers Solution) 1,000 mls @ 125 mls/hr IV ASDIR [facility] Ondansetron HCl (Zofran Injection) 4 mg IVPUSH Q6H PRN PRN Reason: NAUSEA AND/OR VOMITING Stop: 03/07/20 13:05 Senna (Senna -) 2 tab PO HS [facility] Last Admin: 03/05/20 21:11 Dose: 2 tab Documented by: Tramadol HCl (Ultram -) 50 mg PO Q6H PRN PRN Reason: PAIN LEVEL 6-10 Last Admin: 03/05/20 18:04 Dose: 50 mg Documented by: - Objective Vital Signs: Vital Signs Temperature 98.3 F 03/06/20 10:00 Pulse Rate 88 03/06/20 10:00 Respiratory Rate 18 03/06/20 10:00 Blood Pressure 140/80 03/06/20 10:00 O2 Sat by Pulse Oximetry (%) 98 03/06/20 10:00 Constitutional: Yes: Calm Eyes: Yes: Conjunctiva Clear HENT: Yes: Atraumatic Cardiovascular: Yes: S1, S2 Respiratory: Yes: CTA Bilaterally Gastrointestinal: Yes: Soft Genitourinary: Yes: Johnson Present, Hematuria, Other (blateral nephrostomy tubes) Musculoskeletal: Yes: WNL Edema: No Neurological: Yes: Oriented Psychiatric: Yes: Oriented Labs: CBC, BMP 03/06/20 07:40 03/06/20 07:40 INR, PTT INR 1.03 (0.83-1.09) 03/03/20 12:00 Problem List - Problems (1) SEAN (acute kidney injury) Code(s): N17.9 - ACUTE KIDNEY FAILURE, UNSPECIFIED (2) Hyperkalemia Code(s): E87.5 - HYPERKALEMIA (3) Urinary obstruction Code(s): N13.9 - OBSTRUCTIVE AND REFLUX UROPATHY, UNSPECIFIED (4) Nephrolithiasis Code(s): N20.0 - CALCULUS OF KIDNEY Assessment/Plan Current Medications Generic Name Dose Route Start Last Admin Trade Name Freq PRN Reason Stop Dose Admin Acetaminophen 650 mg 03/04/20 13:27 03/04/20 13:35 Tylenol - PO 650 mg Q6H PRN Administration PAIN Docusate Sodium 100 mg 03/03/20 21:30 03/06/20 09:05 Colace - PO Not Given DAILY [facility] Fentanyl 50 mcg 03/06/20 13:06 Sublimaze Injection - IVPUSH 03/07/20 13:05 [id number] PRN PAIN-PACU ORDER X 4 DOSES ONLY Sodium Chloride 1,000 mls @ 100 mls/hr 03/04/20 14:00 03/06/20 09:05 1/2 Normal Saline IV 100 mls/hr ASDIR [facility] Administration Lactated Ringer's 1,000 mls @ 125 mls/hr 03/06/20 13:15 Lactated Ringers Solution IV ASDIR [facility] Ondansetron HCl 4 mg 03/06/20 13:06 Zofran Injection IVPUSH 03/07/20 13:05 Q6H PRN NAUSEA AND/OR VOMITING Senna 2 tab 03/03/20 22:00 03/05/20 21:11 Senna - PO 2 tab HS [facility] Administration Tramadol HCl 50 mg 03/04/20 13:48 03/05/20 18:04 Ultram - PO 50 mg Q6H PRN Administration PAIN LEVEL 6-10 Impression 1. SEAN 2. obstructive uropathy with severe right side hydro 3. spinal chord injury 4. nephrolithiasis 5. hematuria - gross 6. dysuria 7. nsaid use 8. anemia 9. hyperkalemia 10. metabolic acidosis Plan - renal function is improving - cont 1/2 ns - monitor urine output - urology eval - replace mag - will follow
[2020-03-06] MEDS ORDERED: MAGNESIUM SULFATE IN WATER 2 GM/50 ML IVPB IVPB ONE ×2 (14:00→16:17)
[2020-03-06] MEDS ORDERED: DEXAMETHASONE SOD PHOSPHATE 4 MG/1 ML VIAL ONE (14:20)
[2020-03-06] MEDS ORDERED: cefTRIAXone SODIUM 1 GM VIAL IVPB ONE (14:24)
[2020-03-06] MEDS ORDERED: ceFAZolin SODIUM 1 GM VIAL ONE (14:28)
[2020-03-06] MEDS ORDERED: cefTRIAXone SODIUM 1 GM VIAL ONE (14:30)
--- NOTE | 2020-03-06 15:30 | OP ---
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
[2020-03-06] MEDS ORDERED: LABETALOL HCL 5 MG/1 ML (100MG/20 ML VIAL) IVPUSH ONE (15:39)
[2020-03-06] MEDS ORDERED: ACETAMINOPHEN 325 MG TABLET (FP) PO PRN (16:17)
--- NOTE | 2020-03-06 19:35 | PN ---
Physical Exam: SUBJECTIVE: Patient seen and examined OBJECTIVE: Vital Signs Period Temp Pulse Resp BP Sys/Masters Pulse Ox Last 24 Hr 97.8 F-98.7 F 70-101 16-20 139-182/80-116 95-100 GENERAL: The patient is awake, alert, and fully oriented, in no acute distress. HEAD: Normal with no signs of trauma. EYES: PERRL, extraocular movements intact, sclera anicteric, conjunctiva clear. No ptosis. ENT: Ears normal, nares patent, oropharynx clear without exudates, moist mucous membranes. NECK: Trachea midline, full range of motion, supple. LUNGS: Breath sounds equal, clear to auscultation bilaterally, no wheezes, no crackles, no accessory muscle use. HEART: Regular rate and rhythm, S1, S2 without murmur, rub or gallop. ABDOMEN: Soft, nontender, nondistended, normoactive bowel sounds, no guarding, no rebound, no hepatosplenomegaly, no masses. EXTREMITIES: 2+ pulses, warm, well-perfused, no edema. NEUROLOGICAL: Cranial nerves II through XII grossly intact. Normal speech, gait not observed. PSYCH: Normal mood, normal affect. SKIN: Warm, dry, normal turgor, no rashes or lesions noted Laboratory Results - last 24 hr 03/03/20 03/06/20 03/06/20 18:53 04:30 07:40 WBC 10.1 H RBC 2.87 L Hgb 8.7 L Hct 25.4 L MCV 88.5 MCH 30.2 MCHC 34.1 RDW 14.4 Plt Count 204 MPV 7.9 Absolute Neuts (auto) 8.2 H Neutrophils % 81.3 Lymphocytes % 11.4 Monocytes % 5.6 Eosinophils % 1.0 Basophils % 0.7 Nucleated RBC % 0 Sodium 142 Potassium 4.2 Chloride 112 H Carbon Dioxide 20 L Anion Gap 9 BUN 35.3 H Creatinine 2.3 H Est GFR (CKD-EPI)AfAm 36.48 Est GFR (CKD-EPI)NonAf 31.47 Random Glucose 103 Calcium 8.2 L Phosphorus 4.1 Magnesium 1.6 L Blood Type B POSITIVE Antibody Screen Negative Crossmatch See Detail 03/06/20 07:40 WBC 9.3 RBC 2.82 L Hgb 8.4 L Hct 25.0 L MCV 88.5 MCH 29.9 MCHC 33.8 RDW 13.7 Plt Count 197 MPV 8.1 Absolute Neuts (auto) Neutrophils % Lymphocytes % Monocytes % Eosinophils % Basophils % Nucleated RBC % Sodium Potassium Chloride Carbon Dioxide Anion Gap BUN Creatinine Est GFR (CKD-EPI)AfAm Est GFR (CKD-EPI)NonAf Random Glucose Calcium Phosphorus Magnesium Blood Type Antibody Screen Crossmatch Active Medications Generic Name Dose Route Start Last Admin Trade Name Freq PRN Reason Stop Dose Admin Acetaminophen 650 mg 03/06/20 16:17 Tylenol - PO Q6H PRN PAIN Docusate Sodium 100 mg 03/07/20 10:00 Colace - PO DAILY [facility] Ceftriaxone Sodium 1 gm/ 50 mls @ 100 mls/hr 03/07/20 10:00 Dextrose IVPB 03/08/20 09:59 DAILY [facility] Protocol Sodium Chloride 1,000 mls @ 100 mls/hr 03/06/20 16:17 03/06/20 16:50 1/2 Normal Saline IV 100 mls/hr ASDIR [facility] Administration Ondansetron HCl 4 mg 03/06/20 16:17 Zofran Injection IVPUSH 03/07/20 13:05 Q6H PRN NAUSEA AND/OR VOMITING Senna 2 tab 03/06/20 22:00 Senna - PO HS [facility] Tramadol HCl 50 mg 03/06/20 16:17 Ultram - PO Q6H PRN PAIN LEVEL 6-10 ASSESSMENT/PLAN: Mr. Romo is a 54M w a h/o long standing nephrolithiasis, 5 month history of dysuria and hematuria, and a spinal cord injury circa ~1980s. Patient reports to the emergency department for significantly worsening lower back pain. CT scan reveals significanly dilated bilateral hydronephrosis with an 11mm renal calculus in the upper right ureter and obstructive sean. #Obstructive SEAN Patient is s/p bilateral nephrostomy tube and catheter placement - Patient evaluated by Dr. Cardenas - to continue 1/2 normal saline - magnesium replenished - seen by Dr. Lynn for systoscopy with evacuation of clots via TURBT - will follow up for JJ stent - blood clots removed and tumor visualized in the bladder - 100mls of blood loss - follow up H/H give PRBC as needed - placed for 3 way 30ml paniagua - r side nephrostomy bag draining tg red blood - l side nephrostomy bag draining mixture of urine and blood - continued catheter draining <100 cc of hematuria #Normocytic anemia -monitoring CBC and H/H #DVT prophylaxis: SCDs Visit type - Emergency Visit Emergency Visit: Yes ED Registration Date: 03/03/20 Care time: The patient presented to the Emergency Department on the above date and was hospitalized for further evaluation of their emergent condition. - New Patient This patient is new to me today: No - Critical Care Critical Care patient: No - Discharge Referral Referred to [facility] Med P.C.: No ATTENDING PHYSICIAN STATEMENT I saw and evaluated the patient. I reviewed the resident's note and discussed the case with the resident. I agree with the resident's findings and plan as documented. SUBJECTIVE: OBJECTIVE: ASSESSMENT AND PLAN:
[2020-03-06] MEDS: traMADol HCL 50 MG TABLET PO PRN (19:55)
[2020-03-06] MEDS: SENNOSIDES 8.6MG TABLET (FP) PO SCH (21:29)
[2020-03-07] MEDS: SODIUM CHLORIDE 0.45% 1,000 ML IV SCH ×2 (04:39→15:18)
[2020-03-07] MEDS: traMADol HCL 50 MG TABLET PO PRN ×3 (05:58→18:11)
[2020-03-07 08:15] LABS: HEMATOCRIT 24.2 % (35.4-49); HEMOGLOBIN 8.1 GM/dL (11.7-16.9); MCH 29.2 pg (25.7-33.7); MCHC 33.4 g/dl (32.0-35.9); MEAN CELL VOLUME 87.5 fl (80-96); MEAN PLT VOLUME 7.8 fl (7.5-11.1); PLATELET COUNT 262 K/MM3 (134-434); RBC 2.76 M/mm3 (4.00-5.60); WHITE BLOOD COUNT 12.8 K/mm3 (4.0-10.0)
[2020-03-07 08:30] LABS: BLOOD UREA NITROGEN 28.1 mg/dL (7-18); CALCIUM 8.4 mg/dL (8.5-10.1); CREATININE 1.9 mg/dL (0.55-1.3); MAGNESIUM 1.9 mg/dL (1.8-2.4); POTASSIUM 4.1 mmol/L (3.5-5.1)
[2020-03-07] MEDS ORDERED: DEXTROSE 5%-WATER - 50 ML IVPB ONE (09:02)
[2020-03-07] MEDS ORDERED: cefTRIAXone SODIUM 1 GM VIAL ONE (09:02)
[2020-03-07] MEDS: DOCUSATE SODIUM 100 MG CAPSULE (FP) PO SCH (09:30)
[2020-03-07] MEDS ORDERED: CEFTRIAXONE 1 GM in DEXTROSE 5%-WATER - 50 ML IVPB SCH (10:00)
--- NOTE | 2020-03-07 10:44 | PN ---
Progress Note (short form) - Note Progress Note: ANESTHESIA s/p TURBT under GA. No c/o. Vital Signs Temp 98.2 F 03/07/20 09:00 Pulse 92 H 03/07/20 09:00 Resp 20 03/07/20 09:00 BP 146/98 03/07/20 09:00 Pulse Ox 98 03/07/20 09:00 Intake & Output 03/06/20 03/06/20 03/07/20 11:59 23:59 11:59 Intake Total 1250 6150 7400 Output Total 1350 8220 6800 Balance -100 -2070 600 Intake: IV 800 2150 1100 1/2 Normal Saline 1,000 470 584 9541 ml @ 100 mls/hr IV ASDIR [facility] Rx#:[id number] IVPB 100 Oral 0 1000 300 Packed Cells 350 CBI Intake 3000 6000 Output: Drainage 1350 3620 1300 Left nephrostomy 1200 3400 1200 Right nephrostomy 150 220 100 Urine 4600 5500 Johnson 4300 5500 Other: Voiding Method Indwelling Catheter Indwelling Catheter Indwelling Catheter Bowel Movement Yes No No sitting up in bed, NAD RRR CTA B CBC, BMP 03/07/20 07:40 03/07/20 07:40 - No anesthesia complications
--- NOTE | 2020-03-07 13:58 | PN ---
Teaching Attending Note Name of Resident: Jose Covarrubias ATTENDING PHYSICIAN STATEMENT I saw and evaluated the patient. I reviewed the resident's note and discussed the case with the resident. I agree with the resident's findings and plan as documented. SUBJECTIVE: pt is very upset bc of the news about the mass in the bladder, and had been delaying seeing a doctor for a long time, and denies any pain, OBJECTIVE: appears comfortable. nad alert awake oriented. vss neck supple no jvd cvs s1/s2/0 chest ctab abd benign ext no c/c/e neuro non focal. ASSESSMENT AND PLAN: 54-year-old male with a past medical history of spinal cord injury, nephrolithiasis, urinary incontinence who presents with 5-month history of dysuria, intermittent hematuria, abdominal pain and lower back pain that acutely became significantly worse. Found to have significant bilateral hydronephrosis and obstructive SEAN. # Post-renal SEAN vs SEAN on CKD Status post bilateral nephrostomy tubes and was found to have bladder mass the bladder neck extending to the prostate,with . and path pending Avoid nephrotoxic agents IV fluids, trend electrolytes -wbc normalized -improving creatinine Nephrology consult appreciated Urology consult appreciated #anemia, with bladder mass, will get the oncology consult. #DVT prophylaxis: SCDs
--- NOTE | 2020-03-07 14:32 | PN ---
Physical Exam: SUBJECTIVE: Patient seen and examined at bedside. Patient endorses uncomfortable feeling from nephrostomy site. Does not endorse acute events overnight. Hematuria present in cath drain and nephrostomy bags. OBJECTIVE: Vital Signs Period Temp Pulse Resp BP Sys/Masters Pulse Ox Last 24 Hr 97.8 F-98.5 F 70-101 16- 144-182/80-116 95-100 GENERAL: The patient is awake, alert, and fully oriented, in no acute distress. LUNGS: Breath sounds equal, clear to auscultation bilaterally, no wheezes, no crackles, no accessory muscle use. HEART: Regular rate and rhythm, S1, S2 without murmur, rub or gallop. ABDOMEN: soft, nt/nd +BS EXTREMITIES: 2+ pulses, warm, well-perfused, no edema. SKIN: Warm, dry, normal turgor, no rashes or lesions noted Laboratory Results - last 24 hr 03/03/20 03/07/20 03/07/20 18:53 07:40 07:40 WBC 12.8 H RBC 2.76 L Hgb 8.1 L Hct 24.2 L MCV 87.5 MCH 29.2 MCHC 33.4 RDW 14.0 Plt Count 262 D MPV 7.8 Sodium 140 Potassium 4.1 Chloride 108 H Carbon Dioxide 24 Anion Gap 8 BUN 28.1 H Creatinine 1.9 H Est GFR (CKD-EPI)AfAm 45.95 Est GFR (CKD-EPI)NonAf 39.65 Random Glucose 110 H Calcium 8.4 L Phosphorus 4.0 Magnesium 1.9 Blood Type B POSITIVE Antibody Screen Negative Crossmatch See Detail Active Medications Generic Name Dose Route Start Last Admin Trade Name Freq PRN Reason Stop Dose Admin Acetaminophen 650 mg 03/06/20 16:17 Tylenol - PO Q6H PRN PAIN Docusate Sodium 100 mg 03/07/20 10:00 03/07/20 09:30 Colace - PO 100 mg DAILY [facility] Administration Ceftriaxone Sodium 1 gm/ 50 mls @ 100 mls/hr 03/07/20 10:00 03/07/20 09:30 Dextrose IVPB 03/08/20 09:59 100 mls/hr DAILY [facility] Administration Protocol Sodium Chloride 1,000 mls @ 100 mls/hr 03/06/20 16:17 03/07/20 04:39 1/2 Normal Saline IV 100 mls/hr ASDIR [facility] Administration Senna 2 tab 03/06/20 22:00 03/06/20 21:29 Senna - PO 2 tab HS [facility] Administration Tramadol HCl 50 mg 03/06/20 16:17 03/07/20 12:11 Ultram - PO 50 mg Q6H PRN Administration PAIN LEVEL 6-10 ASSESSMENT/PLAN: Mr. Romo is a 54M w a h/o long standing nephrolithiasis, 5 month history of dysuria and hematuria, and a spinal cord injury circa ~. Patient reports to the emergency department for significantly worsening lower back pain. CT scan reveals significanly dilated bilateral hydronephrosis with an 11mm renal calculus in the upper right ureter and obstructive sean. #Obstructive SEAN Patient is s/p bilateral nephrostomy tube and catheter placement - Patient is s/p cystoscopy without complications - Cystoscopy done with tumor visualization w "Large bladder tumor at BN ex tending into prostatic urethra and obliterating trigone" per Dr. Lynn - patient currently treated with CBI - Dr. De Los Santos consulted (nephro) - Dr. Fabio Lynn (Urology) - Consult placed for Heme/onc (Dr. Lopez) #Normocytic anemia - H/H trending - Hgb 8.1 - will follow up CBC #DVT prophylaxis: SCDs Visit type - Emergency Visit Emergency Visit: Yes ED Registration Date: 03/03/20 Care time: The patient presented to the Emergency Department on the above date and was hospitalized for further evaluation of their emergent condition. - New Patient This patient is new to me today: No - Critical Care Critical Care patient: No - Discharge Referral Referred to [facility] Med P.C.: No ATTENDING PHYSICIAN STATEMENT I saw and evaluated the patient. I reviewed the resident's note and discussed the case with the resident. I agree with the resident's findings and plan as documented. SUBJECTIVE: OBJECTIVE: ASSESSMENT AND PLAN:
--- NOTE | 2020-03-07 14:35 | CONSULT ---
Consultation: REQUESTING PROVIDER: Dr. Whittington CONSULT REQUEST: We have been asked to medically evaluate this patient for bladder tumor. HISTORY OF PRESENT ILLNESS: Patient is a 54 year old male with past medical history of spinal cord injury with residual urinary incontinence, presented to the ED with intermittent episodes of painless hematuria for last 6 months, and recent onset of severe right low back. This was accomapanied by frequency and dysuria. Patient was not able to see a doctor in the last few months due to COVID. At the ED, CT a/p w/o contrast was done which revealed an 11mm calculus in the R ureter with severe right hydronephrosis/hydroureter, as well as less severe hydronephrosis/hydrour eter on the left, bladder noted to have blood. Urology was consulted and cystoscopy with JJ stent was planned. During the procedure, a bladder mass was noted, and TURBT was done. Patient denies any fevers, chills, weight loss, decreased appetite, nausea, vomiting, shortness of breath, abdominal pain, constipation, diarrhea. PMHx: Spinal cord Injury PSHx: Left elbow surgery 2/2 trauma Allergies: NKDA Family history: father - heart attack, grandmother - ?cancer, patient unsure SHx: smokes marijuana, occasional EtOH use REVIEW OF SYSTEMS: CONSTITUTIONAL: Absent: fever, chills, diaphoresis, generalized weakness, malaise, loss of appetite, weight change HEENT: Absent: rhinorrhea, nasal congestion, throat pain, throat swelling, difficulty swallowing, mouth swelling, ear pain, eye pain, visual changes CARDIOVASCULAR: Absent: chest pain, syncope, palpitations, irregular heart rate, lightheadedness, peripheral edema RESPIRATORY: Absent: cough, shortness of breath, dyspnea with exertion, orthopnea, wheezing, stridor, hemoptysis GASTROINTESTINAL: Absent: abdominal pain, abdominal distension, nausea, vomiting, diarrhea, constipation, melena, hematochezia GENITOURINARY: hematuria Absent: dysuria, frequency, urgency, hesitancy, flank pain, genital pain MUSCULOSKELETAL: Absent: myalgia, arthralgia, joint swelling, back pain, neck pain SKIN: Absent: rash, itching, pallor HEMATOLOGIC/IMMUNOLOGIC: Absent: easy bleeding, easy bruising, lymphadenopathy, frequent infections ENDOCRINE: Absent: unexplained weight gain, unexplained weight loss, heat intolerance, cold intolerance NEUROLOGIC: Absent: headache, focal weakness or paresthesias, dizziness, unsteady gait, seizure, mental status changes, bladder or bowel incontinence PSYCHIATRIC: Absent: anxiety, depression, suicidal or homicidal ideation, hallucinations. PHYSICAL EXAMINATION Vital Signs - 24 hr 03/06/20 03/06/20 03/06/20 15:26 15:40 15:55 Temperature 98.2 F Pulse Rate 101 H 86 74 Respiratory 18 20 16 Rate Blood Pressure 182/116 H 173/99 H 165/92 O2 Sat by Pulse 100 100 100 Oximetry (%) 03/06/20 03/06/20 03/06/20 16:10 16:25 16:40 Temperature Pulse Rate 72 74 70 Respiratory 16 16 16 Rate Blood Pressure 149/85 164/80 155/86 O2 Sat by Pulse 100 100 100 Oximetry (%) 03/06/20 03/06/20 03/06/20 16:55 17:00 17:49 Temperature 98.2 F 97.8 F Pulse Rate 74 70 80 Respiratory 16 16 18 Rate Blood Pressure 155/80 144/91 154/94 O2 Sat by Pulse 100 100 95 Oximetry (%) 03/06/20 03/06/20 03/07/20 21:00 23:00 06:00 Temperature 98.5 F 98.1 F Pulse Rate 90 95 H Respiratory 18 18 18 Rate Blood Pressure 146/94 154/92 O2 Sat by Pulse 98 98 98 Oximetry (%) 03/07/20 09:00 Temperature 98.2 F Pulse Rate 92 H Respiratory 20 Rate Blood Pressure 146/98 O2 Sat by Pulse 98 Oximetry (%) GENERAL: Awake, alert, and fully oriented, in no acute distress. HEAD: Normal with no signs of trauma. EYES: PERRLA, EOMI, sclera anicteric, conjunctiva clear. EARS, NOSE, THROAT: Moist mucous membranes. NECK: Normal range of motion, supple LUNGS: Breath sounds equal, clear to auscultation bilaterally. HEART: Regular rate and rhythm, normal S1 and S2 without murmur ABDOMEN: Soft, nontender, not distended, normoactive bowel sounds. B/L nephrostomy tube in place , [place] cath draining blood LOWER EXTREMITIES: 2+ pulses, warm, well-perfused. No calf tenderness. No peripheral edema. NEUROLOGICAL: Cranial nerves II-XII intact. Normal speech. PSYCHIATRIC: Cooperative. Good eye contact. Appropriate mood and affect. SKIN: Warm, dry, normal turgor Laboratory Results - last 24 hr 03/03/20 03/07/20 03/07/20 18:53 07:40 07:40 WBC 12.8 H RBC 2.76 L Hgb 8.1 L Hct 24.2 L MCV 87.5 MCH 29.2 MCHC 33.4 RDW 14.0 Plt Count 262 D MPV 7.8 Sodium 140 Potassium 4.1 Chloride 108 H Carbon Dioxide 24 Anion Gap 8 BUN 28.1 H Creatinine 1.9 H Est GFR (CKD-EPI)AfAm 45.95 Est GFR (CKD-EPI)NonAf 39.65 Random Glucose 110 H Calcium 8.4 L Phosphorus 4.0 Magnesium 1.9 Blood Type B POSITIVE Antibody Screen Negative Crossmatch See Detail Active Medications Generic Name Dose Route Start Last Admin Trade Name Freq PRN Reason Stop Dose Admin Acetaminophen 650 mg 03/06/20 16:17 Tylenol - PO Q6H PRN PAIN Docusate Sodium 100 mg 03/07/20 10:00 03/07/20 09:30 Colace - PO 100 mg DAILY NELSON Administration Ceftriaxone Sodium 1 gm/ 50 mls @ 100 mls/hr 03/07/20 10:00 03/07/20 09:30 Dextrose IVPB 03/08/20 09:59 100 mls/hr DAILY NELSON Administration Protocol Sodium Chloride 1,000 mls @ 100 mls/hr 03/06/20 16:17 03/07/20 04:39 1/2 Normal Saline IV 100 mls/hr ASDIR NELSON Administration Senna 2 tab 03/06/20 22:00 03/06/20 21:29 Senna - PO 2 tab HS NELSON Administration Tramadol HCl 50 mg 03/06/20 16:17 03/07/20 12:11 Ultram - PO 50 mg Q6H PRN Administration PAIN LEVEL 6-10 ASSESSMENT/PLAN: Patient is a 54 year old male with past medical history of spinal cord injury with residual urinary incontinence, presented to the ED with intermittent episodes of painless hematuria for last 6 months, and recent onset of severe right low back. #Bladder tumor -likely malignant based on kaycee-op findings -POD 1: cystoscopy, evacuation of clots, TURBT - large bladder tumor at bladder neck extending into prostatic urethra and obliterating trigone -CT a/p (w/o contrast) - enlarged lymph nodes of L retroperitoneal LN chains -await pathology results for diagnosis and staging -Will need PET/CT or at least CT Neck, Chest, Abdomen, Pelvis for staging purposes. #Anemia -likely in setting of chronic gross hematuria -iron studies wnl -monitor and transfuse prn Dispo: We will continue to follow the patient. Thank you for this consultative opportunity. Visit type - Emergency Visit Emergency Visit: Yes ED Registration Date: 03/03/20 Care time: The patient presented to the Emergency Department on the above date and was hospitalized for further evaluation of their emergent condition. - New Patient This patient is new to me today: Yes Date on this admission: 03/07/20 - Critical Care Critical Care patient: No ATTENDING PHYSICIAN STATEMENT I saw and evaluated the patient. I reviewed the resident's note and discussed the case with the resident. I agree with the resident's findings and plan as documented. SUBJECTIVE: OBJECTIVE: ASSESSMENT AND PLAN:
--- NOTE | 2020-03-07 14:45 | PN ---
Progress Note, Physician History of Present Illness: Pt seen and examined at bedside. He is awake and alert. He denies shortness of breath. - Current Medication List Current Medications: Active Medications Acetaminophen (Tylenol -) 650 mg PO Q6H PRN PRN Reason: PAIN Docusate Sodium (Colace -) 100 mg PO DAILY [facility] Last Admin: 03/07/20 09:30 Dose: 100 mg Documented by: Ceftriaxone Sodium 1 gm/ (Dextrose) 50 mls @ 100 mls/hr IVPB DAILY [facility]; Protocol Stop: 03/08/20 09:59 Last Admin: 03/07/20 09:30 Dose: 100 mls/hr Documented by: Sodium Chloride (1/2 Normal Saline) 1,000 mls @ 100 mls/hr IV ASDIR [facility] Last Admin: 03/07/20 04:39 Dose: 100 mls/hr Documented by: Senna (Senna -) 2 tab PO HS [facility] Last Admin: 03/06/20 21:29 Dose: 2 tab Documented by: Tramadol HCl (Ultram -) 50 mg PO Q6H PRN PRN Reason: PAIN LEVEL 6-10 Last Admin: 03/07/20 12:11 Dose: 50 mg Documented by: - Objective Vital Signs: Vital Signs Temperature 98.2 F 03/07/20 09:00 Pulse Rate 92 H 03/07/20 09:00 Respiratory Rate 20 03/07/20 09:00 Blood Pressure 146/98 03/07/20 09:00 O2 Sat by Pulse Oximetry (%) 98 03/07/20 09:00 Constitutional: Yes: Calm Eyes: Yes: Conjunctiva Clear HENT: Yes: Atraumatic Neck: Yes: Supple Cardiovascular: Yes: S1, S2 Respiratory: Yes: CTA Bilaterally Gastrointestinal: Yes: Soft Genitourinary: Yes: Johnson Present, Other (on cbi) Musculoskeletal: Yes: WNL Edema: No Integumentary: Yes: WNL Neurological: Yes: Oriented Psychiatric: Yes: Oriented Labs: CBC, BMP 03/07/20 07:40 03/07/20 07:40 INR, PTT INR 1.03 (0.83-1.09) 03/03/20 12:00 Problem List - Problems (1) SEAN (acute kidney injury) Code(s): N17.9 - ACUTE KIDNEY FAILURE, UNSPECIFIED (2) Hyperkalemia Code(s): E87.5 - HYPERKALEMIA (3) Urinary obstruction Code(s): N13.9 - OBSTRUCTIVE AND REFLUX UROPATHY, UNSPECIFIED (4) Nephrolithiasis Code(s): N20.0 - CALCULUS OF KIDNEY Assessment/Plan Current Medications Generic Name Dose Route Start Last Admin Trade Name Freq PRN Reason Stop Dose Admin Acetaminophen 650 mg 03/06/20 16:17 Tylenol - PO Q6H PRN PAIN Docusate Sodium 100 mg 03/07/20 10:00 03/07/20 09:30 Colace - PO 100 mg DAILY NELSON Administration Ceftriaxone Sodium 1 gm/ 50 mls @ 100 mls/hr 03/07/20 10:00 03/07/20 09:30 Dextrose IVPB 03/08/20 09:59 100 mls/hr DAILY NELSON Administration Protocol Sodium Chloride 1,000 mls @ 100 mls/hr 03/06/20 16:17 03/07/20 04:39 1/2 Normal Saline IV 100 mls/hr ASDIR NELSON Administration Senna 2 tab 03/06/20 22:00 03/06/20 21:29 Senna - PO 2 tab HS NELSON Administration Tramadol HCl 50 mg 03/06/20 16:17 03/07/20 12:11 Ultram - PO 50 mg Q6H PRN Administration PAIN LEVEL 6-10 Impression 1. SEAN 2. obstructive uropathy with severe right side hydro 3. spinal chord injury 4. nephrolithiasis 5. hematuria - gross 6. dysuria 7. nsaid use 8. anemia 9. hyperkalemia 10. metabolic acidosis 11. bladder mass Plan - renal function improving - will start to decrease rate of fluids - repeat labs in am - urology follow up - oncology eval - will follow
--- NOTE | 2020-03-07 19:08 | PN ---
Teaching Attending Note Name of Resident: Gosia Santana ATTENDING PHYSICIAN STATEMENT I saw and evaluated the patient. I reviewed the resident's note and discussed the case with the resident. I agree with the resident's findings and plan as documented. SUBJECTIVE: Voices no complaints. OBJECTIVE: Last Vital Signs Temp Pulse Resp BP Pulse Ox 98.3 F 106 H 20 143/92 98 03/07/20 18:00 03/07/20 18:00 03/07/20 18:00 03/07/20 18:00 03/07/20 18:00 03/07/20 07:40 03/07/20 07:40 ASSESSMENT AND PLAN: 54 y/o gentleman with past medical history of spinal cord injury with residual urinary incontinence, presented to the ED with intermittent episodes of painless hematuria for last 6 months, and recent onset of severe right low back. Recommend: 1) Awaiting pathology. 2) Will need PET/CT or at least CT Neck, Chest, Abdomen, Pelvis for staging purposes. 3) Molecular pathology should be sent as well 4) See Dr. Santana note for details 5) Thank you for this consultation
[2020-03-07] MEDS: SENNOSIDES 8.6MG TABLET (FP) PO SCH (21:28)
[2020-03-08] MEDS: SODIUM CHLORIDE 0.45% 1,000 ML IV SCH ×3 (05:08→22:59)
[2020-03-08] MEDS: traMADol HCL 50 MG TABLET PO PRN ×3 (07:03→20:02)
[2020-03-08 08:28] LABS: HEMATOCRIT 22.9 % (35.4-49); HEMOGLOBIN 7.6 GM/dL (11.7-16.9); MCH 29.5 pg (25.7-33.7); MCHC 33.2 g/dl (32.0-35.9); MEAN CELL VOLUME 88.9 fl (80-96); MEAN PLT VOLUME 8.2 fl (7.5-11.1); PLATELET COUNT 272 K/MM3 (134-434); RBC 2.57 M/mm3 (4.00-5.60); RDW 14.4 % (11.9-15.9); WHITE BLOOD COUNT 11.5 K/mm3 (4.0-10.0)
[2020-03-08 08:48] LABS: ALBUMIN 2.6 g/dl (3.4-5.0); BILIRUBIN,TOTAL 0.2 mg/dL (0.2-1); BLOOD UREA NITROGEN 32.1 mg/dL (7-18); CREATININE 1.8 mg/dL (0.55-1.3); MAGNESIUM 1.7 mg/dL (1.8-2.4); PHOSPHOROUS 3.9 mg/dL (2.5-4.9); TOT PROT 5.4 g/dl (6.4-8.2)
[2020-03-08] MEDS: DOCUSATE SODIUM 100 MG CAPSULE (FP) PO SCH (09:10)
--- NOTE | 2020-03-08 11:57 | PN ---
Progress Note, Physician History of Present Illness: Pt seen and examined at bedside. He is awake and alert. He denies shortness of breath. - Current Medication List Current Medications: Active Medications Acetaminophen (Tylenol -) 650 mg PO Q6H PRN PRN Reason: PAIN Last Admin: 03/07/20 21:28 Dose: 650 mg Documented by: Docusate Sodium (Colace -) 100 mg PO DAILY [facility] Last Admin: 03/08/20 09:10 Dose: 100 mg Documented by: Sodium Chloride (1/2 Normal Saline) 1,000 mls @ 70 mls/hr IV ASDIR [facility] Last Admin: 03/08/20 05:08 Dose: 70 mls/hr Documented by: Magnesium Oxide (Mag-Ox -) 400 mg PO BID [facility] Stop: 03/11/20 11:59 Senna (Senna -) 2 tab PO HS [facility] Last Admin: 03/07/20 21:28 Dose: 2 tab Documented by: Tramadol HCl (Ultram -) 50 mg PO Q6H PRN PRN Reason: PAIN LEVEL 6-10 Last Admin: 03/08/20 07:03 Dose: 50 mg Documented by: - Objective Vital Signs: Vital Signs Temperature 98.3 F 03/08/20 06:00 Pulse Rate 93 H 03/08/20 06:00 Respiratory Rate 20 03/08/20 06:00 Blood Pressure 148/86 03/08/20 06:00 O2 Sat by Pulse Oximetry (%) 96 03/08/20 09:00 Constitutional: Yes: Calm Eyes: Yes: Conjunctiva Clear HENT: Yes: Atraumatic Neck: Yes: Supple Cardiovascular: Yes: S1, S2 Respiratory: Yes: CTA Bilaterally Gastrointestinal: Yes: Soft Genitourinary: Yes: Johnson Present, Other (bilateral nephrostomy tubes) Musculoskeletal: Yes: WNL Edema: No Neurological: Yes: Oriented Psychiatric: Yes: Oriented Labs: CBC, BMP 03/08/20 07:15 03/08/20 07:15 INR, PTT INR 1.03 (0.83-1.09) 03/03/20 12:00 Problem List - Problems (1) SEAN (acute kidney injury) Code(s): N17.9 - ACUTE KIDNEY FAILURE, UNSPECIFIED (2) Hyperkalemia Code(s): E87.5 - HYPERKALEMIA (3) Urinary obstruction Code(s): N13.9 - OBSTRUCTIVE AND REFLUX UROPATHY, UNSPECIFIED (4) Nephrolithiasis Code(s): N20.0 - CALCULUS OF KIDNEY Assessment/Plan Current Medications Generic Name Dose Route Start Last Admin Trade Name Freq PRN Reason Stop Dose Admin Acetaminophen 650 mg 03/06/20 16:17 03/07/20 21:28 Tylenol - PO 650 mg Q6H PRN Administration PAIN Docusate Sodium 100 mg 03/07/20 10:00 03/08/20 09:10 Colace - PO 100 mg DAILY NELSON Administration Sodium Chloride 1,000 mls @ 70 mls/hr 03/07/20 14:46 03/08/20 05:08 1/2 Normal Saline IV 70 mls/hr ASDIR NELSON Administration Magnesium Oxide 400 mg 03/08/20 12:00 Mag-Ox - PO 03/11/20 11:59 BID NELSON Senna 2 tab 03/06/20 22:00 03/07/20 21:28 Senna - PO 2 tab HS NELSON Administration Tramadol HCl 50 mg 03/06/20 16:17 03/08/20 07:03 Ultram - PO 50 mg Q6H PRN Administration PAIN LEVEL 6-10 Impression 1. SEAN 2. obstructive uropathy with severe right side hydro 3. spinal chord injury 4. nephrolithiasis 5. hematuria - gross 6. dysuria 7. nsaid use 8. anemia 9. hyperkalemia 10. metabolic acidosis 11. bladder mass Plan - renal function continues to improve - cont fluids - monitor output - oncology input appreciated - repeat labs in am - urology follow up - will follow
--- NOTE | 2020-03-08 12:00 | PATH ---
Surgical Pathology Report Patient Name: IRMA WOODALL [facility]. Rec. #: [id number] /Age/Gender: 1965 (Age: 54) / M Account: [id number] Location: [address] [place] [address]/[facility] Taken: 03/06/2020 Received: 03/07/2020 Reported: 03/08/2020 Physicians: Faibo Lynn M.D. Specimen(s) Received A: BLADDER TUMOR B: CLOTS Clinical History Acute kidney injury, gross hematuria Final Diagnosis A. 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 NO MUSCULARIS PROPRIA IDENTIFIED. NO FLAT CARCINOMA IN SITU (CIS) IDENTIFIED. B. 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 CARCINOMA IS ADMIXED WITH ABUNDANT BLOOD CLOTS. NO MUSCULARIS PROPRIA IDENTIFIED. NO FLAT CARCINOMA IN SITU (CIS) IDENTIFIED. Comment: Case seen in intradepartmental review with consensus on diagnosis. Case discussed with Dr. Lynn, 03/08/20. Electronically Signed Beth Díaz M.D. Gross Description A. Received in formalin labeled "bladder tumor/biopsy" is a 2.7 x 2.5 x 0.3 cm aggregate of segura soft tissue fragments admixed with blood clot. The formalin is filtered and the specimen is entirely submitted in 2 cassettes. B. Received in formalin labeled "clot," is a 16.0 x 13.5 x 2.0 cm aggregate of red-brown blood clot admixed with segura soft tissue fragments. The soft tissue fragments are from the blood clot and event marketing representative sections are submitted in 5 cassettes as follows: [id number] submitted soft tissue fragments; 5-event marketing representative blood clot. DL/03/07/2020 saudi/03/07/2020
--- NOTE | 2020-03-08 12:22 | PN ---
Progres Note Chief Complaint: pt w/o c/o, POD # 2 s/p TURBT History of Present Illness: s/p turbt, bilat PCN - Objective Vital Signs: Vital Signs Temperature 98.3 F 03/08/20 06:00 Pulse Rate 93 H 03/08/20 06:00 Respiratory Rate 20 03/08/20 06:00 Blood Pressure 148/86 03/08/20 06:00 O2 Sat by Pulse Oximetry (%) 96 03/08/20 09:00 Gastrointestinal: Yes: WNL Genitourinary: Yes: Johnson Present, Hematuria. No: Bladder Distention Labs/Additional Data: CBC, BMP 03/08/20 07:15 03/08/20 07:15 INR, PTT INR 1.03 (0.83-1.09) 03/03/20 12:00 Blood Type Blood Type B POSITIVE 03/03/20 18:53 Blood Type B POSITIVE 03/03/20 18:53 Antibody Screen Negative 03/03/20 18:53 Antibody Screen Negative 03/03/20 18:53 Problem List - Problems (1) Ureteral calculus, right Code(s): N20.1 - CALCULUS OF URETER (2) SEAN (acute kidney injury) Code(s): N17.9 - ACUTE KIDNEY FAILURE, UNSPECIFIED (3) Gross hematuria Code(s): R31.0 - GROSS HEMATURIA (4) Hydronephrosis concurrent with and due to calculi of kidney and ureter Code(s): N13.2 - HYDRONEPHROSIS WITH RENAL AND URETERAL CALCULOUS OBSTRUCTION (5) Bladder cancer Assessment/Plan: cont cbi, transfuse prbcs, he will need radical cystectomy and diversion and chemotherapy. Code(s): C67.9 - MALIGNANT NEOPLASM OF BLADDER, UNSPECIFIED Qualifiers: Bladder location: posterior wall Qualified Code(s): C67.4 - Malignant neoplasm of posterior wall of bladder
[2020-03-08] MEDS: MAGNESIUM OXIDE 400 MG TABLET (FP) PO SCH ×2 (13:00→21:35)
--- NOTE | 2020-03-08 15:09 | PN ---
Teaching Attending Note Name of Resident: Jose Covarrubias ATTENDING PHYSICIAN STATEMENT I saw and evaluated the patient. I reviewed the resident's note and discussed the case with the resident. I agree with the resident's findings and plan as documented. SUBJECTIVE: Feeling better - abdo/flank pain resolved. No fever/chills. OBJECTIVE: Afebrile, Hemodynamically Stable. Last Vital Signs Temp Pulse Resp BP Pulse Ox 98.3 F 93 H 20 148/86 96 03/08/20 06:00 03/08/20 06:00 03/08/20 06:00 03/08/20 06:00 03/08/20 09:00 HEENt - Atraumatic, normocephalic. Heart - S, S2, RRR Lungs - clear to auscultation Abdomen - Soft, non-tender. Bilatral Nephrostomy tubes, L urine colored, R blood tinged. Extremities - no edema, no calf tenderness. Laboratory Results - last 24 hr 03/08/20 03/08/20 03/08/20 07:15 07:15 13:58 WBC 11.5 H RBC 2.57 L Hgb 7.6 L Hct 22.9 L MCV 88.9 MCH 29.5 MCHC 33.2 RDW 14.4 Plt Count 272 MPV 8.2 Sodium 140 Potassium 4.0 Chloride 110 H Carbon Dioxide 25 Anion Gap 5 L BUN 32.1 H Creatinine 1.8 H Est GFR (CKD-EPI)AfAm 49.06 Est GFR (CKD-EPI)NonAf 42.33 Random Glucose 89 Calcium 8.0 L Phosphorus 3.9 Magnesium 1.7 L Total Bilirubin 0.2 AST 9 L ALT 14 Alkaline Phosphatase 51 Total Protein 5.4 L Albumin 2.6 L Crossmatch See Detail Current Medications Generic Name Dose Route Start Last Admin Trade Name Freq PRN Reason Stop Dose Admin Acetaminophen 650 mg 03/06/20 16:17 03/07/20 21:28 Tylenol - PO 650 mg Q6H PRN Administration PAIN Docusate Sodium 100 mg 03/07/20 10:00 03/08/20 09:10 Colace - PO 100 mg DAILY NELSON Administration Sodium Chloride 1,000 mls @ 70 mls/hr 03/07/20 14:46 03/08/20 05:08 1/2 Normal Saline IV 70 mls/hr ASDIR NELSON Administration Magnesium Oxide 400 mg 03/08/20 12:00 03/08/20 13:00 Mag-Ox - PO 03/11/20 11:59 400 mg BID NELSON Administration Magnesium Sulfate 2 gm 03/08/20 15:04 Magnesium Sulfate IVPB 03/08/20 15:05 ONCE ONE Senna 2 tab 03/06/20 22:00 03/07/20 21:28 Senna - PO 2 tab HS NELSON Administration Tramadol HCl 50 mg 03/06/20 16:17 03/08/20 13:55 Ultram - PO 50 mg Q6H PRN Administration PAIN LEVEL 6-10 Home Medications Medication Instructions Recorded Advil - 200 mg 03/04/20 ASSESSMENT AND PLAN: 54 year old male with history of spinal cord injury, Nephrolithiasis, urinary incontinence who presents with 5-month history of dysuria, intermittent hematu bertha, abdominal pain and lower back pain, found to have significant bilateral hydronephrosis and obstructive SEAN. 1. SEAN secondary to Obstructive uropathy with R sided Hydronephrosis Creat improving s/p bilateral Nephrostomies (POD 5) Continue IV fluids Nephrology following. 2. Bladder Mass, likely Ca POD 2 s/p cystoscopy/TURBT, awaiting Bx result. Oncology/Urology following - will likely need radical cystectomy with diversion and chemotherapy - unclear whether he may need to be transferred for this. CBI ongoing 3. Acute Blood Loss Anemia sec to Hematuria due to above H.H 7.6/22.9 s/p 2 unit PRBCs. For transfusion 2nd unit PRBCs. 4. Hypomagnesemia - repleted orally. DVT Px - SCDs.
[2020-03-08] MEDS ORDERED: MAGNESIUM 2GM/50ML STERILE WATER IVPB IVPB ONE (15:15)
--- NOTE | 2020-03-08 20:09 | PN ---
Teaching Attending Note Name of Resident: Gosia Santana ATTENDING PHYSICIAN STATEMENT I saw and evaluated the patient. I reviewed the resident's note and discussed the case with the resident. I agree with the resident's findings and plan as documented. ASSESSMENT AND PLAN: 54 y/o gentleman with past medical history of spinal cord injury with residual urinary incontinence, presented to the ED with intermittent episodes of painless hematuria for last 6 months, and recent onset of severe right low back. s/p cystoscopy, evacuation of blood clots and TURBT on 03/03/20 -- large tumor at bladder neck obliterating the trigone and extending into the prostatic urethra severe rt. sided hydronephrosis, less severe left hydronephrosis, enlarged left retroperitoneal nodes, distended bladder Biopsy c/w
[2020-03-08] MEDS: SENNOSIDES 8.6MG TABLET (FP) PO SCH (21:35)
[2020-03-09] MEDS: traMADol HCL 50 MG TABLET PO PRN ×3 (05:19→18:25)
--- NOTE | 2020-03-09 07:27 | PN ---
Physical Exam: SUBJECTIVE: Patient seen and examined at bedside. Patient denies any acute evens overnight. Patient is seen to continue draining hematuria in the right nephrostomy bag and paniagua. Patient draining urine in and small amount of blood in left nephrostomy bag. OBJECTIVE: Vital Signs Period Temp Pulse Resp BP Sys/Masters Pulse Ox Last 24 Hr 97.5 F-99.5 F 88-106 16-20 139-150/86-99 96-100 GENERAL: The patient is awake, alert, and fully oriented, in no acute distress. LUNGS: Breath sounds equal, clear to auscultation bilaterally, no wheezes, no crackles, no accessory muscle use. HEART: Regular rate and rhythm, S1, S2 without murmur, rub or gallop. ABDOMEN: Soft, nontender, nondistended, normoactive bowel sounds, no guarding, no rebound, no hepatosplenomegaly, no masses. EXTREMITIES: 2+ pulses, warm, well-perfused, no edema. Laboratory Results - last 24 hr 03/03/20 03/08/20 03/08/20 18:53 07:15 07:15 WBC 11.5 H RBC 2.57 L Hgb 7.6 L Hct 22.9 L MCV 88.9 MCH 29.5 MCHC 33.2 RDW 14.4 Plt Count 272 MPV 8.2 Sodium 140 Potassium 4.0 Chloride 110 H Carbon Dioxide 25 Anion Gap 5 L BUN 32.1 H Creatinine 1.8 H Est GFR (CKD-EPI)AfAm 49.06 Est GFR (CKD-EPI)NonAf 42.33 Random Glucose 89 Calcium 8.0 L Phosphorus 3.9 Magnesium 1.7 L Total Bilirubin 0.2 AST 9 L ALT 14 Alkaline Phosphatase 51 Total Protein 5.4 L Albumin 2.6 L Blood Type B POSITIVE Antibody Screen Negative Crossmatch See Detail 03/08/20 13:58 WBC RBC Hgb Hct MCV MCH MCHC RDW Plt Count MPV Sodium Potassium Chloride Carbon Dioxide Anion Gap BUN Creatinine Est GFR (CKD-EPI)AfAm Est GFR (CKD-EPI)NonAf Random Glucose Calcium Phosphorus Magnesium Total Bilirubin AST ALT Alkaline Phosphatase Total Protein Albumin Blood Type B POSITIVE Antibody Screen Negative Crossmatch See Detail Active Medications Generic Name Dose Route Start Last Admin Trade Name Freq PRN Reason Stop Dose Admin Acetaminophen 650 mg 03/06/20 16:17 03/07/20 21:28 Tylenol - PO 650 mg Q6H PRN Administration PAIN Docusate Sodium 100 mg 03/07/20 10:00 03/08/20 09:10 Colace - PO 100 mg DAILY NELSON Administration Sodium Chloride 1,000 mls @ 70 mls/hr 03/07/20 14:46 03/08/20 22:59 1/2 Normal Saline IV 70 mls/hr ASDIR NELSON Administration Magnesium Oxide 400 mg 03/08/20 12:00 03/08/20 21:35 Mag-Ox - PO 03/11/20 11:59 400 mg BID NELSON Administration Senna 2 tab 03/06/20 22:00 03/08/20 21:35 Senna - PO 2 tab HS NELSON Administration Tramadol HCl 50 mg 03/06/20 16:17 03/09/20 05:19 Ultram - PO 50 mg Q6H PRN Administration PAIN LEVEL 6-10 ASSESSMENT/PLAN: Mr. Romo is a 54M w a h/o long standing nephrolithiasis, 5 month history of dysuria and hematuria, and a spinal cord injury circa ~. Patient reports to the emergency department for significantly worsening lower back pain. CT scan reveals significanly dilated bilateral hydronephrosis with an 11mm renal calculus in the upper right ureter and obstructive elmer. #obstructive elmer - patient CT scan reveals bilateral hydronephrosis - creatinine trending down - Dr. De Los Santos on board - IVF # bladder mass - Cystoscopy/TUBT done with tumor visualization w "Large bladder tumor at BN extending into prostatic urethra and obliterating trigone" per Dr. Lynn - patient is POD2 pending pathology report - Patient curently on continuous bladder irrigation - Per Dr. Lynn - patient will likly need radial cystectomy with diversion prior to chemo- possible transfer to [facility] #Normocytic anemia - H/H trending - Hgb 7.6 - s/p 1 unit prbc - patient will receive one more unit of PRBC - will follow up CBC #DVT prophylaxis: SCDs DVT Px - SCDs. Visit type - Emergency Visit Emergency Visit: Yes ED Registration Date: 03/03/20 Care time: The patient presented to the Emergency Department on the above date and was hospitalized for further evaluation of their emergent condition. - New Patient This patient is new to me today: No - Critical Care Critical Care patient: No - Discharge Referral Referred to [facility] Med P.C.: No ATTENDING PHYSICIAN STATEMENT I saw and evaluated the patient. I reviewed the resident's note and discussed the case with the resident. I agree with the resident's findings and plan as documented. SUBJECTIVE: OBJECTIVE: ASSESSMENT AND PLAN:
[2020-03-09 08:46] LABS: HEMATOCRIT 23.7 % (35.4-49); MCH 29.8 pg (25.7-33.7); MCHC 33.9 g/dl (32.0-35.9); MEAN PLT VOLUME 7.6 fl (7.5-11.1); PLATELET COUNT 256 K/MM3 (134-434); RBC 2.69 M/mm3 (4.00-5.60); RDW 14.4 % (11.9-15.9)
[2020-03-09 09:08] LABS: BLOOD UREA NITROGEN 24.2 mg/dL (7-18); CALCIUM 8.4 mg/dL (8.5-10.1); CREATININE 1.6 mg/dL (0.55-1.3); MAGNESIUM 1.7 mg/dL (1.8-2.4); PHOSPHOROUS 3.6 mg/dL (2.5-4.9); POTASSIUM 3.9 mmol/L (3.5-5.1)
[2020-03-09] MEDS: MAGNESIUM OXIDE 400 MG TABLET (FP) PO SCH ×2 (09:09→22:28)
[2020-03-09] MEDS: DOCUSATE SODIUM 100 MG CAPSULE (FP) PO SCH (09:09)
[2020-03-09] MEDS: SODIUM CHLORIDE 0.45% 1,000 ML IV SCH ×2 (12:00→19:27)
[2020-03-09] MEDS ORDERED: MAGNESIUM SULF 50% (8.12 MEQ/2 ML-1 GM VIAL) IVPB ONE (13:14)
--- NOTE | 2020-03-09 13:21 | PN ---
Teaching Attending Note Name of Resident: Jose Covarrubias ATTENDING PHYSICIAN STATEMENT I saw and evaluated the patient. I reviewed the resident's note and discussed the case with the resident. I agree with the resident's findings and plan as documented. SUBJECTIVE: Feeling better - abdo/flank pain resolved. No fever/chills. OBJECTIVE: Afebrile, Hemodynamically Stable. Last Vital Signs Temp Pulse Resp BP Pulse Ox 97.5 F L 100 H 16 156/94 96 03/09/20 07:07 03/09/20 10:00 03/09/20 10:00 03/09/20 10:00 03/09/20 10:00 Heart - S1, S2, RRR Lungs - clear to auscultation Abdomen - Soft, non-tender. Bilatral Nephrostomy tubes, L - urine colored, R - blood tinged. Extremities - no edema, no calf tenderness. Laboratory Results - last 24 hr 03/03/20 03/08/20 03/09/20 18:53 13:58 07:46 WBC 11.0 H RBC 2.69 L Hgb 8.0 L Hct 23.7 L MCV 88.0 MCH 29.8 MCHC 33.9 RDW 14.4 Plt Count 256 MPV 7.6 Sodium Potassium Chloride Carbon Dioxide Anion Gap BUN Creatinine Est GFR (CKD-EPI)AfAm Est GFR (CKD-EPI)NonAf Random Glucose Calcium Phosphorus Magnesium Blood Type B POSITIVE B POSITIVE Antibody Screen Negative Negative Crossmatch See Detail See Detail 03/09/20 07:46 WBC RBC Hgb Hct MCV MCH MCHC RDW Plt Count MPV Sodium 141 Potassium 3.9 Chloride 109 H Carbon Dioxide 24 Anion Gap 8 BUN 24.2 H Creatinine 1.6 H Est GFR (CKD-EPI)AfAm 56.57 Est GFR (CKD-EPI)NonAf 48.81 Random Glucose 100 Calcium 8.4 L Phosphorus 3.6 Magnesium 1.7 L Blood Type Antibody Screen Crossmatch Current Medications Generic Name Dose Route Start Last Admin Trade Name Freq PRN Reason Stop Dose Admin Acetaminophen 650 mg 03/06/20 16:17 03/07/20 21:28 Tylenol - PO 650 mg Q6H PRN Administration PAIN Docusate Sodium 100 mg 03/07/20 10:00 03/09/20 09:09 Colace - PO 100 mg DAILY NELSON Administration Sodium Chloride 1,000 mls @ 70 mls/hr 03/07/20 14:46 03/09/20 12:00 1/2 Normal Saline IV 70 mls/hr ASDIR NELSON Administration Magnesium Oxide 400 mg 03/08/20 12:00 03/09/20 09:09 Mag-Ox - PO 03/11/20 11:59 400 mg BID NELSON Administration Senna 2 tab 03/06/20 22:00 03/08/20 21:35 Senna - PO 2 tab HS NELSON Administration Tramadol HCl 50 mg 03/06/20 16:17 03/09/20 11:57 Ultram - PO 50 mg Q6H PRN Administration PAIN LEVEL 6-10 Home Medications Medication Instructions Recorded Advil - 200 mg 03/04/20 ASSESSMENT AND PLAN: 54 year old male with history of spinal cord injury, Nephrolithiasis, urinary incontinence who presents with 5-month history of dysuria, intermittent hematuria, abdominal pain and lower back pain, found to have significant bilateral hydronephrosis and obstructive SEAN. 1. SEAN secondary to Obstructive uropathy with R sided Hydronephrosis Creat improving s/p bilateral Nephrostomies (POD 6) Continue IV fluids Nephrology following. 2. 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 Oncology/Urology following - will likely need radical cystectomy with diversion and chemotherapy - unclear whether he may need to be transferred for this, awaiting Urology plan. CBI ongoing 3. Acute Blood Loss Anemia sec to Hematuria due to above H.H 8.0/23.7 s/p 3 units PRBCs. Will need iron supplementation on discharge. 4. Hypomagnesemia - repleted. DVT Px - SCDs.
[2020-03-09] MEDS ORDERED: MAGNESIUM 1GM/D5W 100ML - 100 ML IVPB IVPB ONE (13:30)
[2020-03-09] MEDS ORDERED: MAGNESIUM 1GM/D5W 100ML - 100 ML IVPB IVPB SCH (13:30)
[2020-03-09] MEDS ORDERED: MAGNESIUM 2GM/50ML STERILE WATER IVPB IVPB ONE (13:30)
--- NOTE | 2020-03-09 14:35 | PN ---
Progress Note, Physician History of Present Illness: Pt seen and examined at bedside. He is awake and alert. He denies shortness of breath. - Current Medication List Current Medications: Active Medications Acetaminophen (Tylenol -) 650 mg PO Q6H PRN PRN Reason: PAIN Last Admin: 03/07/20 21:28 Dose: 650 mg Documented by: Docusate Sodium (Colace -) 100 mg PO DAILY [facility] Last Admin: 03/09/20 09:09 Dose: 100 mg Documented by: Sodium Chloride (1/2 Normal Saline) 1,000 mls @ 70 mls/hr IV ASDIR [facility] Last Admin: 03/09/20 12:00 Dose: 70 mls/hr Documented by: Magnesium Oxide (Mag-Ox -) 400 mg PO BID [facility] Stop: 03/11/20 11:59 Last Admin: 03/09/20 09:09 Dose: 400 mg Documented by: Senna (Senna -) 2 tab PO HS [facility] Last Admin: 03/08/20 21:35 Dose: 2 tab Documented by: Tramadol HCl (Ultram -) 50 mg PO Q6H PRN PRN Reason: PAIN LEVEL 6-10 Last Admin: 03/09/20 11:57 Dose: 50 mg Documented by: - Objective Vital Signs: Vital Signs Temperature 97.5 F L 03/09/20 07:07 Pulse Rate 100 H 03/09/20 10:00 Respiratory Rate 16 03/09/20 10:00 Blood Pressure 156/94 03/09/20 10:00 O2 Sat by Pulse Oximetry (%) 96 03/09/20 10:00 Constitutional: Yes: Calm Eyes: Yes: Conjunctiva Clear HENT: Yes: Atraumatic Neck: Yes: Supple Cardiovascular: Yes: S1, S2 Respiratory: Yes: CTA Bilaterally Gastrointestinal: Yes: Normal Bowel Sounds, Soft Genitourinary: Yes: Johnson Present, Hematuria, Other (bilateral nephrostomy tubes) Musculoskeletal: Yes: WNL Edema: No Neurological: Yes: Oriented Psychiatric: Yes: Oriented Labs: CBC, BMP 03/09/20 07:46 03/09/20 07:46 INR, PTT INR 1.03 (0.83-1.09) 03/03/20 12:00 Problem List - Problems (1) SEAN (acute kidney injury) Code(s): N17.9 - ACUTE KIDNEY FAILURE, UNSPECIFIED (2) Hyperkalemia Code(s): E87.5 - HYPERKALEMIA (3) Urinary obstruction Code(s): N13.9 - OBSTRUCTIVE AND REFLUX UROPATHY, UNSPECIFIED (4) Nephrolithiasis Code(s): N20.0 - CALCULUS OF KIDNEY Assessment/Plan Current Medications Generic Name Dose Route Start Last Admin Trade Name Freq PRN Reason Stop Dose Admin Acetaminophen 650 mg 03/06/20 16:17 03/07/20 21:28 Tylenol - PO 650 mg Q6H PRN Administration PAIN Docusate Sodium 100 mg 03/07/20 10:00 03/09/20 09:09 Colace - PO 100 mg DAILY NELSON Administration Sodium Chloride 1,000 mls @ 70 mls/hr 03/07/20 14:46 03/09/20 12:00 1/2 Normal Saline IV 70 mls/hr ASDIR [facility] Administration Magnesium Oxide 400 mg 03/08/20 12:00 03/09/20 09:09 Mag-Ox - PO 03/11/20 11:59 400 mg BID [facility]SON Administration Senna 2 tab 03/06/20 22:00 03/08/20 21:35 Senna - PO 2 tab HS [facility]ELSON Administration Tramadol HCl 50 mg 03/06/20 16:17 03/09/20 11:57 Ultram - PO 50 mg Q6H PRN Administration PAIN LEVEL 6-10 Impression 1. SEAN 2. obstructive uropathy with severe right side hydro 3. spinal chord injury 4. nephrolithiasis 5. hematuria - gross 6. dysuria 7. nsaid use 8. anemia 9. hyperkalemia 10. metabolic acidosis 11. bladder mass Plan - renal function stable - replace mag - cont fluids - repeat labs in am - monitor lytes - follow pathology
[2020-03-09] MEDS: SENNOSIDES 8.6MG TABLET (FP) PO SCH (22:28)
[2020-03-10] MEDS: traMADol HCL 50 MG TABLET PO PRN ×2 (01:19→11:25)
[2020-03-10] MEDS: SODIUM CHLORIDE 0.45% 1,000 ML IV SCH (04:04)
--- NOTE | 2020-03-10 06:46 | PN ---
Physical Exam: SUBJECTIVE: Patient seen and examined at bedside. Patient on CBI. 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 Left nephrostomy draining urine and some blood, right nephrostomy draining tg hematuria. Spoke with Dr. Lynn - patient should be monitored for kidney function prior [facility], cbi, and further bladder mass work up. OBJECTIVE: Vital Signs Period Temp Pulse Resp BP Sys/Masters Pulse Ox Last 24 Hr 97.5 F-99.0 F 87-100 16-18 138-156/85-94 96-98 GENERAL: The patient is awake, alert, and fully oriented, in no acute distress. LUNGS: Breath sounds equal, clear to auscultation bilaterally, no wheezes, no crackles, no accessory muscle use. HEART: Regular rate and rhythm, S1, S2 without murmur, rub or gallop. ABDOMEN: Soft, nontender, nondistended, normoactive bowel sounds, no guarding, no rebound, no hepatosplenomegaly, no masses. EXTREMITIES: 2+ pulses, warm, well-perfused, no edema. Laboratory Results - last 24 hr 03/09/20 03/09/20 07:46 07:46 WBC 11.0 H RBC 2.69 L Hgb 8.0 L Hct 23.7 L MCV 88.0 MCH 29.8 MCHC 33.9 RDW 14.4 Plt Count 256 MPV 7.6 Sodium 141 Potassium 3.9 Chloride 109 H Carbon Dioxide 24 Anion Gap 8 BUN 24.2 H Creatinine 1.6 H Est GFR (CKD-EPI)AfAm 56.57 Est GFR (CKD-EPI)NonAf 48.81 Random Glucose 100 Calcium 8.4 L Phosphorus 3.6 Magnesium 1.7 L Active Medications Generic Name Dose Route Start Last Admin Trade Name Freq PRN Reason Stop Dose Admin Acetaminophen 650 mg 03/06/20 16:17 03/07/20 21:28 Tylenol - PO 650 mg Q6H PRN Administration PAIN Docusate Sodium 100 mg 03/07/20 10:00 03/09/20 09:09 Colace - PO 100 mg DAILY NELSON Administration Sodium Chloride 1,000 mls @ 70 mls/hr 03/07/20 14:46 03/10/20 04:04 1/2 Normal Saline IV 70 mls/hr ASDIR NELSON Administration Magnesium Oxide 400 mg 03/08/20 12:00 03/09/20 22:28 Mag-Ox - PO 03/11/20 11:59 400 mg BID NELSON Administration Senna 2 tab 03/06/20 22:00 03/09/20 22:28 Senna - PO 2 tab HS NELSON Administration Tramadol HCl 50 mg 03/06/20 16:17 03/10/20 01:19 Ultram - PO 50 mg Q6H PRN Administration PAIN LEVEL 6-10 ASSESSMENT/PLAN: Mr. Romo is a 54M w a h/o long standing nephrolithiasis, 5 month history of dysuria and hematuria, and a spinal cord injury circa ~1980s. Patient reports to the emergency department for significantly worsening lower back pain. CT scan reveals significanly dilated bilateral hydronephrosis with an 11mm renal calculus in the upper right ureter and obstructive elmer. #obstructive elmer -nephrostomy POD#6 - creatinine trending down - Dr. 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 - Cystoscopy/TUBT done with tumor visualization w "Large bladder tumor at BN extending into prostatic urethra and obliterating trigone" per Dr. Lynn - patient is POD2 pending pathology report - Patient curently on continuous bladder irrigation - Per Dr. Lynn - patient will likly need radial cystectomy with diversion prior to chemo- [facility] #Normocytic anemia - H/H trending - Hgb 8.0 s/p 3 PRBCs - will follow up CBC #DVT prophylaxis: SCDs Visit type - Emergency Visit Emergency Visit: Yes ED Registration Date: 03/03/20 Care time: The patient presented to the Emergency Department on the above date and was hospitalized for further evaluation of their emergent condition. - New Patient This patient is new to me today: No - Critical Care Critical Care patient: No - Discharge Referral Referred to [facility] Med P.C.: No ATTENDING PHYSICIAN STATEMENT I saw and evaluated the patient. I reviewed the resident's note and discussed the case with the resident. I agree with the resident's findings and plan as documented. SUBJECTIVE: OBJECTIVE: ASSESSMENT AND PLAN:
[2020-03-10] MEDS: MAGNESIUM OXIDE 400 MG TABLET (FP) PO SCH (09:30)
[2020-03-10] MEDS: DOCUSATE SODIUM 100 MG CAPSULE (FP) PO SCH (09:30)
[2020-03-10 09:41] LABS: HEMATOCRIT 24.6 % (35.4-49); HEMOGLOBIN 8.3 GM/dL (11.7-16.9); MCH 29.6 pg (25.7-33.7); MCHC 33.7 g/dl (32.0-35.9); MEAN CELL VOLUME 87.8 fl (80-96); MEAN PLT VOLUME 7.6 fl (7.5-11.1); PLATELET COUNT 278 K/MM3 (134-434); RDW 14.2 % (11.9-15.9); WHITE BLOOD COUNT 11.1 K/mm3 (4.0-10.0)
[2020-03-10 10:09] LABS: BLOOD UREA NITROGEN 22.6 mg/dL (7-18); CALCIUM 8.6 mg/dL (8.5-10.1); CREATININE 1.7 mg/dL (0.55-1.3); MAGNESIUM 1.9 mg/dL (1.8-2.4); PHOSPHOROUS 3.2 mg/dL (2.5-4.9); POTASSIUM 3.9 mmol/L (3.5-5.1)
--- NOTE | 2020-03-10 10:32 | PN ---
MASSIMO Isaac Note Chief Complaint: pt w/o c/o History of Present Illness: 54 m pod # 4 s/p TURBT - Objective Vital Signs: Vital Signs Temperature 99.2 F 03/10/20 09:00 Pulse Rate 97 H 03/10/20 09:00 Respiratory Rate 18 03/10/20 09:00 Blood Pressure 157/100 03/10/20 09:00 O2 Sat by Pulse Oximetry (%) 98 03/10/20 09:00 Genitourinary: Yes: [place] Present, Hematuria (tinged cbi) Labs/Additional Data: CBC, BMP 03/10/20 08:13 03/10/20 08:13 INR, PTT INR 1.03 (0.83-1.09) 03/03/20 12:00 Blood Type Blood Type B POSITIVE 03/08/20 13:58 Antibody Screen Negative 03/08/20 13:58 Problem List - Problems (1) Ureteral calculus, right Code(s): N20.1 - CALCULUS OF URETER (2) SEAN (acute kidney injury) Code(s): N17.9 - ACUTE KIDNEY FAILURE, UNSPECIFIED (3) Gross hematuria Code(s): R31.0 - GROSS HEMATURIA (4) Hydronephrosis concurrent with and due to calculi of kidney and ureter Code(s): N13.2 - HYDRONEPHROSIS WITH RENAL AND URETERAL CALCULOUS OBSTRUCTION (5) Bladder cancer Assessment/Plan: will discont cbi today, remove paniagua and disch in am 8/15, rto 1 week or f/u at [facility] Code(s): C67.9 - MALIGNANT NEOPLASM OF BLADDER, UNSPECIFIED Qualifiers: Bladder location: posterior wall Qualified Code(s): C67.4 - Malignant neoplasm of posterior wall of bladder
[2020-03-10] MEDS ORDERED: MAGNESIUM SULF 50% (8.12 MEQ/2 ML-1 GM VIAL) IVPB ONE (11:01)
[2020-03-10] MEDS ORDERED: MAGNESIUM 2GM/50ML STERILE WATER IVPB IVPB ONE (11:30)
[2020-03-10] MEDS ORDERED: MAGNESIUM 1GM/D5W 100ML - 100 ML IVPB IVPB SCH (11:30)
--- NOTE | 2020-03-10 13:34 | PN ---
Teaching Attending Note Name of Resident: Jose Covarrubias ATTENDING PHYSICIAN STATEMENT I saw and evaluated the patient. I reviewed the resident's note and discussed the case with the resident. I agree with the resident's findings and plan as documented. SUBJECTIVE: Feeling better - abdo/flank pain resolved. No fever/chills. OBJECTIVE: Afebrile, Hemodynamically Stable. Last Vital Signs Temp Pulse Resp BP Pulse Ox 99.2 F 97 H 18 98 03/10/20 09:00 03/10/20 09:00 03/10/20 09:00 03/10/20 09:00 03/10/20 12:00 Heart - S1, S2, RRR Lungs - clear to auscultation Abdomen - Soft, non-tender. Bilatral Nephrostomy tubes, L - urine colored, R - blood tinged. Extremities - no edema, no calf tenderness. Laboratory Results - last 24 hr 03/10/20 03/10/20 08:13 08:13 WBC 11.1 H RBC 2.80 L Hgb 8.3 L Hct 24.6 L MCV 87.8 MCH 29.6 MCHC 33.7 RDW 14.2 Plt Count 278 MPV 7.6 Sodium 140 Potassium 3.9 Chloride 105 Carbon Dioxide 27 Anion Gap 8 BUN 22.6 H Creatinine 1.7 H Est GFR (CKD-EPI)AfAm 52.57 Est GFR (CKD-EPI)NonAf 45.36 Random Glucose 138 H Calcium 8.6 Phosphorus 3.2 Magnesium 1.9 Current Medications Generic Name Dose Route Start Last Admin Trade Name Freq PRN Reason Stop Dose Admin Acetaminophen 650 mg 03/06/20 16:17 03/07/20 21:28 Tylenol - PO 650 mg Q6H PRN Administration PAIN Docusate Sodium 100 mg 03/07/20 10:00 03/10/20 09:30 Colace - PO 100 mg DAILY [facility] Administration Sodium Chloride 1,000 mls @ 70 mls/hr 03/07/20 14:46 03/10/20 04:04 1/2 Normal Saline IV 70 mls/hr ASDIR NELSON Administration Magnesium Oxide 400 mg 03/08/20 12:00 03/10/20 09:30 Mag-Ox - PO 03/11/20 11:59 400 mg BID NELSON Administration Senna 2 tab 03/06/20 22:00 03/09/20 22:28 Senna - PO 2 tab HS NELSON Administration Tramadol HCl 50 mg 03/06/20 16:17 03/10/20 11:25 Ultram - PO 50 mg Q6H PRN Administration PAIN LEVEL 6-10 ASSESSMENT AND PLAN: 54 year old male with history of spinal cord injury, Nephrolithiasis, urinary incontinence who presents with 5-month history of dysuria, intermittent hematuria, abdominal pain and lower back pain, found to have significant bilateral hydronephrosis and obstructive SEAN. 1. SEAN secondary to Obstructive Uropathy with R sided Hydronephrosis Creat improving s/p bilateral Nephrostomies (POD 7) Oral intake necouraged Nephrology follow-up on discharge 2. 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 CBI to be discontinued today. Oncology/Urology following - will likely need radical cystectomy with diversion and chemotherapy - cleared for discharge by Urology - for out-patient follow up and coordination of care as out-patient/[facility]. Counselling regarding Nephrostomy care. 3. Acute Blood Loss Anemia sec to Hematuria due to above H.H 8.3/24.6 s/p 4 units PRBCs. Will need iron supplementation on discharge. 4. Hypomagnesemia - repleted. DVT Px - SCDs.
[2020-03-10 14:12] VITALS: BP 130/85; PULSE 89; TEMP 98.8
--- NOTE | 2020-03-10 15:19 | PN ---
Progress Note, Physician History of Present Illness: Pt seen and examined at bedside. He is awake and alert. He denies shortness of breath. He has not voided since the paniagua was removed. - Current Medication List Current Medications: Active Medications Acetaminophen (Tylenol -) 650 mg PO Q6H PRN PRN Reason: PAIN Last Admin: 03/07/20 21:28 Dose: 650 mg Documented by: Docusate Sodium (Colace -) 100 mg PO DAILY [facility] Last Admin: 03/10/20 09:30 Dose: 100 mg Documented by: Sodium Chloride (1/2 Normal Saline) 1,000 mls @ 70 mls/hr IV ASDIR [facility] Last Admin: 03/10/20 04:04 Dose: 70 mls/hr Documented by: Magnesium Oxide (Mag-Ox -) 400 mg PO BID [facility] Stop: 03/11/20 11:59 Last Admin: 03/10/20 09:30 Dose: 400 mg Documented by: Senna (Senna -) 2 tab PO HS [facility] Last Admin: 03/09/20 22:28 Dose: 2 tab Documented by: Tramadol HCl (Ultram -) 50 mg PO Q6H PRN PRN Reason: PAIN LEVEL 6-10 Last Admin: 03/10/20 11:25 Dose: 50 mg Documented by: - Objective Vital Signs: Vital Signs Temperature 98.8 F 03/10/20 14:12 Pulse Rate 89 03/10/20 14:59 Respiratory Rate 18 03/10/20 14:59 Blood Pressure 130/85 03/10/20 14:59 O2 Sat by Pulse Oximetry (%) 98 03/10/20 14:59 Constitutional: Yes: Calm Eyes: Yes: Conjunctiva Clear HENT: Yes: Atraumatic Neck: Yes: Supple Cardiovascular: Yes: Regular Rate and Rhythm, S1, S2 Respiratory: Yes: CTA Bilaterally Gastrointestinal: Yes: Normal Bowel Sounds, Soft Genitourinary: Yes: Other (bilateral nephrostomy tubes) Musculoskeletal: Yes: WNL Edema: No Neurological: Yes: Oriented Psychiatric: Yes: Oriented Labs: CBC, BMP 03/10/20 08:13 03/10/20 08:13 INR, PTT INR 1.03 (0.83-1.09) 03/03/20 12:00 Problem List - Problems (1) SEAN (acute kidney injury) Code(s): N17.9 - ACUTE KIDNEY FAILURE, UNSPECIFIED (2) Hyperkalemia Code(s): E87.5 - HYPERKALEMIA (3) Urinary obstruction Code(s): N13.9 - OBSTRUCTIVE AND REFLUX UROPATHY, UNSPECIFIED (4) Nephrolithiasis Code(s): N20.0 - CALCULUS OF KIDNEY Assessment/Plan Current Medications Generic Name Dose Route Start Last Admin Trade Name Freq PRN Reason Stop Dose Admin Acetaminophen 650 mg 03/06/20 16:17 03/07/20 21:28 Tylenol - PO 650 mg Q6H PRN Administration PAIN Docusate Sodium 100 mg 03/07/20 10:00 03/10/20 09:30 Colace - PO 100 mg DAILY [facility] Administration Sodium Chloride 1,000 mls @ 70 mls/hr 03/07/20 14:46 03/10/20 04:04 1/2 Normal Saline IV 70 mls/hr ASDIR [facility] Administration Magnesium Oxide 400 mg 03/08/20 12:00 03/10/20 09:30 Mag-Ox - PO 03/11/20 11:59 400 mg BID [facility] Administration Senna 2 tab 03/06/20 22:00 03/09/20 22:28 Senna - PO 2 tab HS [facility] Administration Tramadol HCl 50 mg 03/06/20 16:17 03/10/20 11:25 Ultram - PO 50 mg Q6H PRN Administration PAIN LEVEL 6-10 Impression 1. SEAN 2. obstructive uropathy with severe right side hydro 3. spinal chord injury 4. nephrolithiasis 5. hematuria - gross 6. dysuria 7. nsaid use 8. anemia 9. hyperkalemia 10. metabolic acidosis 11. bladder mass/cancer Plan - repeat labs in am - paniagua removed, voiding trial - pt will bilateral nephrostomy tubes, monitor hematuria in right tube - urology input appreciated - avoid nsaids - cont fluids - repeat labs in am
--- NOTE | 2020-03-10 17:12 | DS ---
Physical Exam: SUBJECTIVE: Patient seen and examined at bedside. Patient denies overnight complaints. R nephrostomy tube draining hematuria, L nephrostomy tube draining urine. CBI draining light pink urine. OBJECTIVE: Vital Signs Period Temp Pulse Resp BP Sys/Masters Pulse Ox Last 24 Hr 98.1 F-99.2 F 89-98 18-18 130-157/85-100 97-98 PHYSICAL EXAM GENERAL: The patient is awake, alert, and fully oriented, in no acute distress. LUNGS: Breath sounds equal, clear to auscultation bilaterally, no wheezes, no crackles, no accessory muscle use. HEART: Regular rate and rhythm, S1, S2 without murmur, rub or gallop. ABDOMEN: Soft, nontender, nondistended, normoactive bowel sounds, no guarding, no rebound, no hepatosplenomegaly, no masses. EXTREMITIES: 2+ pulses, warm, well-perfused, no edema. LABS Laboratory Results - last 24 hr 03/10/20 03/10/20 08:13 08:13 WBC 11.1 H RBC 2.80 L Hgb 8.3 L Hct 24.6 L MCV 87.8 MCH 29.6 MCHC 33.7 RDW 14.2 Plt Count 278 MPV 7.6 Sodium 140 Potassium 3.9 Chloride 105 Carbon Dioxide 27 Anion Gap 8 BUN 22.6 H Creatinine 1.7 H Est GFR (CKD-EPI)AfAm 52.57 Est GFR (CKD-EPI)NonAf 45.36 Random Glucose 138 H Calcium 8.6 Phosphorus 3.2 Magnesium 1.9 HOSPITAL COURSE: Date of Admission:03/03/20 Mr. Romo is a 54M w a c/o 6 months of hematuria and dysuria. The patient reported to the hospital due to an uncomfortable sensation in his flank bilaterally with concerns of progressive hematuria. CTAP reveals bilateral hydronephrosis with renal and ureteral calculus obstruction. Furthermore, investigation of the hematuria by Dr. Lynn (urology) via cystoscopy and TURBT. Cystoscopy reveals large bladder tumor at BN extending into prostatic urethra and obliterating trigone. Patient was managed with cont cbi s/p bx. During the hospital course the patient was transfuse prbcs x4. As per urologym patient will require radical cystectomy, diversion, and chemotherapy. The patient was also found to have SEAN secondary to Obstructive uropathy with R sided Hydronephrosis. SEAN was managed by nephrology with Creat improving s/p bilateral Nephrostomies and continuous IV fluids. The patient was dc'd off of CBI and was guided to follow up with Dr. Lynn within 1 week post discharge or to follow up at [facility] [place]. Date of Discharge: 03/10/20 Minutes to complete discharge: 40 Discharge Summary Problems reviewed: Yes Reason For Visit: ACUTE KIDNEY INJURY GROSS HEMATURIA Condition: Stable - Instructions Diet, Activity, Other Instructions: YOUR VISIT: You were admitted to the hospital for blood in your urine and trouble urinating. While you were in the hospital, we evaluated you with lab work, blood work, imaging including x-rays of your chest and a CAT scan of your abdomen and pelvis and an abdominal ultrasound. You were evaluated by specialists such as a [place] Attorney/oncologist Dr. Lopez and a urologist Dr. Fabio Lynn. Your labwork showed impaired kidney function. On CT scan of your abdomen and pelvis we found that your kidneys were enlarged. The urologist examined you with a cystoscopy and found a mass in your bladder which was the cause of your symptoms. The urologist scheduled you to receive continuous bladder irrigations and nephrost teodoro tubes to drain you kidneys. You will follow up with your Urologist to go over the results of the pathology and answer any questions you may have about further work-up and treatment plan. We found that you had a low blood count due to the blood loss in your urine and you were given 4 blood transfusions throughout your stay. MEDICATIONS: Please START taking: -Feosol 325mg, twice a day -Docusate[COLACE] 100mg, twice a day -Please continue to take all other home medications as prescribed -Avoiduse of NSAIDs(eg. advil/ibuprofen, naproxen), as these medications can im pair kidney function. You may take acetaminophen[TYLENOL] over the counter for pain. Avoid taking more than 2grams of acetaminophen daily. REFERRAL: Please follow up with UROLOGY to go over your procedure and further management within 1 week. (Dr. Fabio Lynn) Please follow up with Hematology/Oncology for bladder mass within 1 week of discharge. (Dr. Tobi Lopez) Please follow up with Nephrology for your kidney labwork within 2 week of discharge. (Dr. Yonas Yin) Please follow up with your Primary care provider to go over your hospital visit within 1 week of discharge ADDITIONAL INFORMATION: You are being transferred home. Please return to the emergency department if you are experiencing any increased abdominal pain, increased bloody urine, chest pain, shortness of breath, confusion, fever, chills, diarrhea, vomiting or any concerning symptoms. Referrals: Fabio Lynn MD [Staff Physician] - 1 Week (please discuss the results of your bladder surgery. Please discuss the managment of your nephrostomy tubes) Jessica Britton MD [Staff Physician] - 1 Week (please discuss the pathology results) Yonas Yin MD [Staff Physician] - 2 Weeks (Please discuss your abnormal renal function) Disposition: HOME - Home Medications Comprehensive Discharge Medication List: Ambulatory Orders Docusate Sodium [Colace -] 100 mg PO BID #60 capsule 03/10/20 Ferrous Sulfate [Iron] 325 mg PO BID #60 tablet 03/10/20 This patient is new to me today: No Emergency Visit: Yes ED Registration Date: 03/03/20 Care time: The patient presented to the Emergency Department on the above date and was hospitalized for further evaluation of their emergent condition. Critical Care patient: No - Discharge Referral Referred to [facility] No ATTENDING PHYSICIAN STATEMENT I saw and evaluated the patient. I reviewed the resident's note and discussed the case with the resident. I agree with the resident's findings and plan as documented. SUBJECTIVE: OBJECTIVE: ASSESSMENT AND PLAN:
--- NOTE | 2020-03-10 18:13 | PN ---
Progress Note (short form) - Note Progress Note: Spoke to Dr Lynn. He was okay with discharge today. Pt has plans for outpt follow-up at [facility] [place]03[place]14/2020.
--- NOTE | 2020-03-11 09:41 | PN.HO ---
Progress Note (short form) - Note Progress Note: PAtient seen and examined Denies any complaints Last Vital Signs Temp Pulse Resp BP Pulse Ox 99.2 F 97 H 18 98 03/10/20 09:00 03/10/20 09:00 03/10/20 09:00 03/10/20 09:00 03/10/20 12:00 Heart - S1, S2, RRR Lungs - clear to auscultation Abdomen - Soft, non-tender. Bilatral Nephrostomy tubes, L - urine colored, R - blood tinged. Extremities - no edema, no calf tenderness. Laboratory Results - last 24 hr 03/10/20 03/10/20 08:13 08:13 WBC 11.1 H RBC 2.80 L Hgb 8.3 L Hct 24.6 L MCV 87.8 MCH 29.6 MCHC 33.7 RDW 14.2 Plt Count 278 MPV 7.6 Sodium 140 Potassium 3.9 Chloride 105 Carbon Dioxide 27 Anion Gap 8 BUN 22.6 H Creatinine 1.7 H Est GFR (CKD-EPI)AfAm 52.57 Est GFR (CKD-EPI)NonAf 45.36 Random Glucose 138 H Calcium 8.6 Phosphorus 3.2 Magnesium 1.9 Current Medications Generic Name Dose Route Start Last Admin Trade Name Freq PRN Reason Stop Dose Admin Acetaminophen 650 mg 03/06/20 16:17 03/07/20 21:28 Tylenol - PO 650 mg Q6H PRN Administration PAIN Docusate Sodium 100 mg 03/07/20 10:00 03/10/20 09:30 Colace - PO 100 mg DAILY NELSON Administration Sodium Chloride 1,000 mls @ 70 mls/hr 03/07/20 14:46 03/10/20 04:04 1/2 Normal Saline IV 70 mls/hr ASDIR NELSON Administration Magnesium Oxide 400 mg 03/08/20 12:00 03/10/20 09:30 Mag-Ox - PO 03/11/20 11:59 400 mg BID NELSON Administration Senna 2 tab 03/06/20 22:00 03/09/20 22:28 Senna - PO 2 tab HS NELSON Administration Tramadol HCl 50 mg 03/06/20 16:17 03/10/20 11:25 Ultram - PO 50 mg Q6H PRN Administration PAIN LEVEL 6-10 ASSESSMENT AND PLAN: 54 year old male with history of spinal cord injury, Nephrolithiasis, urinary incontinence who presents with 5-month history of dysuria, intermittent hematuria, abdominal pain and lower back pain, found to have significant bilateral hydronephrosis and obstructive SEAN. 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 Muscularis mucosa not present. Invasive into lamina propria s/p b/l PCNS with improving cr from 5 to 1.6 ? T4 ? M1a( retroperitoneal nodes) ? stage AKIN will need outpatient PET-CT PDL1 status on the biopsy Once metastatic disease confirmed will need systemic therapy ---? gem/cis based on renal function/performance status Will need close urology/oncology follow up as outpatient. Discussed with patient and his brother Discussed above recommendations with patient
--- NOTE | 2020-03-15 16:03 | OP ---
DATE OF OPERATION: 03/06/2020 PREOPERATIVE DIAGNOSIS: Bilateral hydronephrosis, right ureteral calculus, gross hematuria. POSTOPERATIE DIAGNOSIS: Bilateral hydronephrosis, right ureteral calculus, gross hematuria, large bladder tumor. PROCEDURE: Cystoscopy, evacuation of clots, transurethral resection of bladder tumor (large). SURGEON: Fabio Gasca MD MEDICAL EDUCATOR: None. ANESTHESIA: General. SPECIMENS: Blood clots and bladder tumor. CULTURES: None. DRAINS: A 24-[place] 3-way Johnson catheter, 30-mL balloon and bilateral nephrostomy tubes. ESTIMATED BLOOD LOSS: 100 mL. COMPLICATIONS: None. DESCRIPTION OF PROCEDURE: Patient brought in the operating room, placed on the operating table in supine position. After administration of general anesthesia, intravenous antibiotics were administered. Sequential compression devices were placed. Patient was placed in dorsal lithotomy position. Perineum and genitals were prepped and draped in the usual sterile manner after removing indwelling Johnson catheter. The 22-[place] cystoscope was inserted into the bladder under direct vision. Anterior urethra was normal. The prostatic urethra demonstrated copious clots. The bladder was entered and as well showed copious amount of clots. These were evacuated using a Froy syringe. Now cystoscopy was performed. This demonstrated no foreign bodies. There was what appeared to be a large solid tumor involving the base of the bladder extending to the bladder neck and prostatic urethra, obscuring the entire trigone and both ureteral orifices. The remainder of the cystoscopy was unremarkable. Now the cystoscope was removed, leaving the bladder full, and resectoscope was inserted. Transurethral resection of bladder tumor was done. Specimen was sent to pathology as specimen. All tissue resected was removed with the [employer] evacuator. Hemostasis was assured. The bladder was left full, and a 24-[place] 3-way Johnson catheter was inserted, 30 mL placed in the balloon, placed on continuous bladder irrigation. He tolerated the procedure well, transferred to recovery room in stable condition. FABIO GASCA M.D. [id number]
== END 2020-03-10 17:04 | disposition home or self-care (01) | DRG 669 ==
LOC: JER 10:51 → JERBED 16:07 → J5S 20:08
PROVIDERS: ADMIT Internal Medicine
PROC: 0T9130Z Drainage of Left Kidney with Drainage Device, Percutaneous Approach (ICD-10-PCS; 2020-03-03)
PROC: 0T9030Z Drainage of Right Kidney with Drainage Device, Percutaneous Approach (ICD-10-PCS; 2020-03-03)
PROC: BT03ZZZ Plain Radiography of Bilateral Kidneys (ICD-10-PCS; 2020-03-03)
PROC: 0TBB8ZZ Excision of Bladder, Via Natural or Artificial Opening Endoscopic (ICD-10-PCS; principal; 2020-03-06 13:00)
PROC: 0T9B8ZZ Drainage of Bladder, Via Natural or Artificial Opening Endoscopic (ICD-10-PCS; 2020-03-06 13:00)
DX: C67.4 Malignant neoplasm of posterior wall of bladder (principal); N13.2 Hydronephrosis with renal and ureteral calculous obstruction; E87.2 Acidosis; Z68.43 Body mass index [BMI] 50.0-59.9, adult; D62 Acute posthemorrhagic anemia; N17.9 Acute kidney failure, unspecified; R31.0 Gross hematuria; E87.5 Hyperkalemia; M54.5 Low back pain; N13.9 Obstructive and reflux uropathy, unspecified; D64.9 Anemia, unspecified; R30.0 Dysuria; T14.8XXS Other injury of unspecified body region, sequela; R59.0 Localized enlarged lymph nodes; E86.0 Dehydration; E83.42 Hypomagnesemia; E66.9 Obesity, unspecified; I12.9 Hypertensive chronic kidney disease with stage 1 through stage 4 chronic kidney disease, or unspecified chronic kidney disease; N18.9 Chronic kidney disease, unspecified; Z79.1 Long term (current) use of non-steroidal anti-inflammatories (NSAID)
CPT/HCPCS: 36415; 36430; 36511; 50432; 71045-TC-FY; 74176-TC; 80048; 80053; 81003; 82728; 83540; 83550; 83690; 83735; 83970; 84100; 85025; 85027; 85610; 85730; 86850; 86900; 86901; 86922; 87086; 88304-TC; 88307-TC; 93005; 93010; 94760; 99285-25; A4358; C1729; C1769; J0131; P9038; P9058; U0003